=== PATIENT | female | born 1935 | race Caucasian/White ===

== ENCOUNTER 2022-12-31 00:38 | Inpatient (IN) | payer MEDICARE, OTHER ==
[2022-12-31 00:44] LABS: Glucose,Whole Blood 99 mg/dL (70-110)
--- NOTE | 2022-12-31 01:03 | ED ---
Dizziness HPI - General Chief Complaint: Syncope Stated Complaint: Syncope Time Seen by Provider: 12/31/22 00:52 Source: patient, EMS Mode of arrival: EMS Limitations: no limitations - History of Present Illness Initial Comments: 87-year-old female with past medical history significant for hypertension presents to ED with a chief complaint of dizziness. Patient states for the past day has felt dizzy. Describes this as feeling similar to near-syncope however patient states that she "doesn't let it get that far". States that this is relieved with rest. Patient reports that she feels like this when she does not have enough water. Patient also notes that she has had poor water intake over the past few days as she "forgets". Otherwise, patient has no complaints. Denies chest pain or shortness of breath. Denies urinary complaints. - Related Data Home Medications Medication Instructions Recorded Confirmed Losartan/Hydrochlorothiazide 1 each PO DAILY 03/04/15 12/18/22 [Hyzaar 100-12.5 Tablet] amLODIPine BESYLATE [Norvasc] 5 mg PO BID PRN 06/02/15 12/18/22 Previous Rx's Medication Instructions Recorded Aspirin 81 mg PO DAILY #30 chewable 03/06/15 Allergies Allergy/AdvReac Type Severity Reaction Status Date / Time esomeprazole magnesium AdvReac Nausea & Verified 12/18/22 12:27 [From Nexium] Vomiting Review of Systems ROS Statement: Those systems with pertinent positive or pertinent negative responses have been documented in the HPI. ROS Other: All systems not noted in ROS Statement are negative. Past Medical History Past Medical History: Hypertension Additional Past Medical History / Comment(s): rheumatoid arthritis History of Any Multi-Drug Resistant Organisms: None Reported Past Surgical History: Joint Replacement Additional Past Surgical History / Comment(s): bilateral knee replacements Past Anesthesia/Blood Transfusion Reactions: No Reported Reaction Past Psychological History: No Psychological Hx Reported Smoking Status: Former smoker Past Alcohol Use History: None Reported Past Drug Use History: None Reported General Exam Limitations: no limitations General appearance: alert, in no apparent distress Eye exam: Present: PERRL, EOMI ENT exam: Present: other (Mucous membranes dry) Neck exam: Present: normal inspection Respiratory exam: Present: normal lung sounds bilaterally Cardiovascular Exam: Present: regular rate, normal rhythm GI/Abdominal exam: Present: soft (No tenderness to palpation. No rebound guarding or rigidity.) Neurological exam: Present: alert, oriented X3, CN II-XII intact Skin exam: Present: warm, dry Course Vital Signs 12/31/22 00:39 Temperature 98.3 F Pulse Rate 98 Respiratory 16 Rate Blood Pressure 129/75 O2 Sat by Pulse 96 Oximetry Medical Decision Making - Medical Decision Making Was pt. sent in by a medical professional or institution (, LOR, CANNON FIRE DIRECTION SPECIALIST, urgent care, hospital, or care home...) When possible be specific @ -No Did you speak to anyone other than the patient for history (EMS, parent, family, police, friend...)? What history was obtained from this source @ -No Did you review nursing and triage notes (agree or disagree)? Why? @ -I reviewed and agree with nursing and triage notes Were old charts reviewed (outside hosp., previous admission, EMS record, old EKG, old radiological studies, urgent care reports/EKG's, care home records)? Report findings @ -No old charts were reviewed Differential Diagnosis (chest pain, altered mental status, abdominal pain women, abdominal pain men, vaginal bleeding, weakness, fever, dyspnea, syncope, headache, dizziness, GI bleed, back pain, seizure, CVA, palpatations, mental health, musculoskeletal)? @ -Differential Dizziness: Benign paroxysmal positional Vertigo, Menieres disease, otitis media, acoustic neuroma, vertebrobasilar insufficiency, cerebellar stroke, encephalitis, hypovolemic, arrhythmia, coronary artery syndrome, anemia, this is not meant to be an all-inclusive list EKG interpreted by me (3pts min.). @ -As above X-rays interpreted by me (1pt min.). @ -None done CT interpreted by me (1pt min.). @ -CT brain considered however at this time neurologic exam unremarkable lor jessicatopher is not having any other neurologic complaints. U/S interpreted by me (1pt. min.). @ -None done What testing was considered but not performed or refused? (CT, X-rays, U/S, labs)? Why? @ -None What meds were considered but not given or refused? Why? @ -None Did you discuss the management of the patient with other professionals (professionals i.e. , LOR, CANNON FIRE DIRECTION SPECIALIST, lab, RT, psych nurse, clinical social work aide, fuel system maintenance worker, teacher, collection officer, case resource manager)? Give summary @ -No Was smoking cessation discussed for >3mins.? @ -No Was critical care preformed (if so, how long)? @ -No Were there social determinants of health that impacted care today? How? (Homeles sness, low income, unemployed, alcoholism, drug addiction, transportation, low edu. Level, literacy, decrease access to med. care, correction, rehab)? @ -No Was there de-escalation of care discussed even if they declined (Discuss DNR or withdrawal of care, Hospice)? DNR status @ -No What co-morbidities impacted this encounter? (DM, HTN, Smoking, COPD, CAD, Cancer, CVA, ARF, Chemo, Hep., AIDS, mental health diagnosis, sleep apnea, morbid obesity)? @ -Hypertension Was patient admitted / discharged? Hospital course, mention meds given and route, prescriptions, significant lab abnormalities, going to OR and other pertinent info. @ -Discharge 87-year-old female presenting with 1 day of dizziness. Laboratory studies did show an elevated white count of 14.8. BUN elevated at 29. UA shows no evidence of infection. Laboratory studies otherwise unremarkable. Patient will be admitted to observation for continued IV hydration. Chest x-ray at this time ordered and pending. Discussed plan of care the patient who is in agreement. Undiagnosed new problem with uncertain prognosis? @ -No Drug Therapy requiring intensive monitoring for toxicity (Heparin, Nitro, Insulin, Cardizem)? @ -No Were any procedures done? @ -No Diagnosis/symptom? @ -Dizziness Acute, or Chronic, or Acute on Chronic? @ -Acute Uncomplicated (without systemic symptoms) or Complicated (systemic symptoms)? @ -Uncomplicated Side effects of treatment? @ -No Exacerbation, Progression, or Severe Exacerbation? @ -No Poses a threat to life or bodily function? How? (Chest pain, [place], [place], pneumonia, PE, COPD, DKA, ARF, appy, cholecystitis, CVA, Diverticulitis, Homicidal, Suic idal, threat to staff... and all critical care pts) @ -No - Lab Data Result diagrams: 12/31/22 00:54 12/31/22 00:54 Lab Results 12/31/22 12/31/22 12/31/22 Range/Units 00:42 00:54 00:54 WBC 14.8 H (3.8-10.6) k/uL RBC 4.97 (3.80-5.40) m/uL Hgb 14.5 (11.4-16.0) gm/dL Hct 44.5 (34.0-46.0) % MCV 89.6 (80.0-100.0) fL MCH 29.2 (25.0-35.0) pg MCHC 32.5 (31.0-37.0) g/dL RDW 14.9 (11.5-15.5) % Plt Count 369 (150-450) k/uL MPV 8.9 Neutrophils % (Manual) 90 % Band Neuts % (Manual) 6 % Lymphocytes % (Manual) 1 % Monocytes % (Manual) 3 % Neutrophils # (Manual) 14.20 H (1.3-7.7) k/uL Lymphocytes # (Manual) 0.15 L (1.0-4.8) k/uL Monocytes # (Manual) 0.44 (0-1.0) k/uL Nucleated RBCs 0 (0-0) /100 WBC PT 10.1 (9.0-12.0) sec INR 1.0 (<1.2) APTT 23.8 (22.0-30.0) sec Sodium (137-145) mmol/L Potassium (3.5-5.1) mmol/L Chloride (98-107) mmol/L Carbon Dioxide (22-30) mmol/L Anion Gap mmol/L BUN (7-17) mg/dL Creatinine (0.52-1.04) mg/dL Est GFR (CKD-EPI)AfAm (>60 ml/min/1.73 sqM) Est GFR (CKD-EPI)NonAf (>60 ml/min/1.73 sqM) Glucose (74-99) mg/dL POC Glucose (mg/dL) 99 (70-110) mg/dL POC Glu Towel Rolling Machine Operator ID Arnulfo Streeterle Calcium (8.4-10.2) mg/dL Total Bilirubin (0.2-1.3) mg/dL AST (14-36) U/L ALT (4-34) U/L Alkaline Phosphatase (38-126) U/L Troponin I (0.000-0.034) ng/mL Total Protein (6.3-8.2) g/dL Albumin (3.5-5.0) g/dL Urine Color Urine Appearance (Clear) Urine pH (5.0-8.0) Ur Specific [place] (1.001-1.035) Urine Protein (Negative) Urine Glucose (UA) (Negative) Urine Ketones (Negative) Urine Blood (Negative) Urine Nitrite (Negative) Urine Bilirubin (Negative) Urine Urobilinogen (<2.0) mg/dL Ur Leukocyte Esterase (Negative) 12/31/22 12/31/22 12/31/22 Range/Units 00:54 00:54 00:54 WBC (3.8-10.6) k/uL RBC (3.80-5.40) m/uL Hgb (11.4-16.0) gm/dL Hct (34.0-46.0) % MCV (80.0-100.0) fL MCH (25.0-35.0) pg MCHC (31.0-37.0) g/dL RDW (11.5-15.5) % Plt Count (150-450) k/uL MPV Neutrophils % (Manual) % Band Neuts % (Manual) % Lymphocytes % (Manual) % Monocytes % (Manual) % Neutrophils # (Manual) (1.3-7.7) k/uL Lymphocytes # (Manual) (1.0-4.8) k/uL Monocytes # (Manual) (0-1.0) k/uL Nucleated RBCs (0-0) /100 WBC PT (9.0-12.0) sec INR (<1.2) APTT (22.0-30.0) sec Sodium 135 L (137-145) mmol/L Potassium 3.8 (3.5-5.1) mmol/L Chloride 105 (98-107) mmol/L Carbon Dioxide 20 L (22-30) mmol/L Anion Gap 10 mmol/L BUN 29 H (7-17) mg/dL Creatinine 1.02 (0.52-1.04) mg/dL Est GFR (CKD-EPI)AfAm 57 (>60 ml/min/1.73 sqM) Est GFR (CKD-EPI)NonAf 50 (>60 ml/min/1.73 sqM) Glucose 108 H (74-99) mg/dL POC Glucose (mg/dL) (70-110) mg/dL POC Glu Towel Rolling Machine Operator ID Calcium 9.4 (8.4-10.2) mg/dL Total Bilirubin 1.2 (0.2-1.3) mg/dL AST 26 (14-36) U/L ALT 15 (4-34) U/L Alkaline Phosphatase 80 (38-126) U/L Troponin I <0.012 (0.000-0.034) ng/mL Total Protein 6.5 (6.3-8.2) g/dL Albumin 3.5 (3.5-5.0) g/dL Urine Color Yellow Urine Appearance Clear (Clear) Urine pH 5.5 (5.0-8.0) Ur Specific [place] 1.017 (1.001-1.035) Urine Protein Trace H (Negative) Urine Glucose (UA) Negative (Negative) Urine Ketones Negative (Negative) Urine Blood Negative (Negative) Urine Nitrite Negative (Negative) Urine Bilirubin Negative (Negative) Urine Urobilinogen <2.0 (<2.0) mg/dL Ur Leukocyte Esterase Negative (Negative) - EKG Data EKG Comments: EKG shows a sinus tachycardia at [address] or T-wave changes. GA 178, QRS 92, QT/QTc 332/389 Disposition Clinical Impression: Dizziness Disposition: ADMITTED IP TO THIS HOSP Condition: Good Referrals: Jose Antonio Pablo MD [Primary Care Provider] - 1-2 days Time of Disposition: 02:15
[2022-12-31 01:16] LABS: Appearance,Urine Clear (Clear); Bilirubin,Urine Negative (Negative); Blood,Urine Negative (Negative); Color,Urine Yellow; Glucose,Urine (UA) Negative (Negative); Ketones,Urine Negative (Negative); Leukocyte Esterase,Urine Negative (Negative); Nitrite,Urine Negative (Negative); PH, Urine 5.5 (5.0-8.0); Protein,Urine Trace (Negative); Specific Gravity,Urine 1.017 (1.001-1.035); Urobilinogen,Urine <2.0 mg/dL (<2.0)
[2022-12-31 01:20] LABS: ALT 15 U/L (4-34); AST 26 U/L (14-36); African American GFR (CKD) 57 (>60 ml/min/1.73 sqM); Albumin 3.5 g/dL (3.5-5.0); Alkaline Phosphatase 80 U/L (38-126); Anion Gap 10 mmol/L; Blood Urea Nitrogen 29 mg/dL (7-17); Calcium 9.4 mg/dL (8.4-10.2); Carbon Dioxide 20 mmol/L (22-30); Chloride 105 mmol/L (98-107); Glucose 108 mg/dL (74-99); Non-African American GFR(CKD) 50 (>60 ml/min/1.73 sqM); Potassium 3.8 mmol/L (3.5-5.1); Sodium 135 mmol/L (137-145); Total Bilirubin 1.2 mg/dL (0.2-1.3); Total Protein 6.5 g/dL (6.3-8.2)
[2022-12-31 01:24] LABS: Partial Thromboplastin Time 23.8 sec (22.0-30.0); Prothrombin Time 10.1 sec (9.0-12.0)
[2022-12-31 01:30] LABS: HCT 44.5 % (34.0-46.0); HGB 14.5 gm/dL (11.4-16.0); MCH 29.2 pg (25.0-35.0); MCHC 32.5 g/dL (31.0-37.0); MCV 89.6 fL (80.0-100.0); Mean Platelet Volume 8.9; Platelet Count 369 k/uL (150-450); RBC 4.97 m/uL (3.80-5.40); RDW 14.9 % (11.5-15.5); WBC 14.8 k/uL (3.8-10.6)
[2022-12-31 02:14] LABS: Band Neutrophils % 6 %; Lymphocytes # (M) 0.15 k/uL (1.0-4.8); Monocytes # (M) 0.44 k/uL (0-1.0); Neutrophils % (M) 90 %; Nucleated Red Blood Cells 0 /100 WBC (0-0); Total Cells Counted 100
[2022-12-31] MEDS ORDERED: NALOXONE 0.4 MG/ML 1 ML VIAL IV PRN (03:24)
[2022-12-31] MEDS ORDERED: ACETAMINOPHEN TAB 325 MG TAB PO PRN (03:24)
[2022-12-31] MEDS: SODIUM CHLORIDE 0.9% 1,000 ML IV SCH ×4 (03:48→20:30)
--- NOTE | 2022-12-31 04:14 | XR ---
EXAM: XR Chest, 1 View CLINICAL HISTORY: ITS.REASON XR Reason: dizzy TECHNIQUE: Frontal view of the chest. COMPARISON: 03/04/2015 FINDINGS: Lungs: No consolidation. No overt edema. Pleural space: No pleural effusion. No pneumothorax. Heart: Unremarkable. No cardiomegaly. IMPRESSION: No acute cardiopulmonary abnormality.
[2022-12-31] MEDS ORDERED: LOSARTAN 50 MG TAB PO SCH (09:00)
--- NOTE | 2022-12-31 09:35 | US ---
EXAMINATION TYPE: US carotid duplex BILAT DATE OF EXAM: 12/31/2022 COMPARISON: 03/04/2015 CLINICAL INDICATION: Female, 87 years old with history of Dizziness; Dizzy. HTN- on meds per patient Portable Inpt exam TECHNIQUE: Carotid duplex ultrasound examination. Indirect Doppler criteria was utilized. FINDINGS: EXAM MEASUREMENTS: RIGHT: Peak Systolic Velocity (PSV) cm/sec ----- Right CCA: 111.0 ----- Right ICA: 104.0 ----- Right ECA: 162.0 ICA/CCA ratio: 0.9 RIGHT: End Diastole cm/sec ----- Right CCA: 9.0 ----- Right ICA: 4.9 ----- Right ECA: 0.0 LEFT: Peak Systolic Velocity (PSV) cm/sec ----- Left CCA: 94.5 ----- Left ICA: 169.0 ----- Left ECA: 115.0 ICA/CCA ratio: 1.8 LEFT: End Diastole cm/sec ----- Left CCA: 2.2 ----- Left ICA: 20.8 ----- Left ECA: 0.0 VERTEBRALS (direction of flow): Right Vertebral: Antegrade Left Vertebral: Antegrade Rhythm: Normal REFRIGERATION MECHANIC HELPER NOTES: Plaque visualized. No significant stenosis. Elevated right ECA, left mid ICA and left distal ICA velocities. IMPRESSION: 50-69% stenosis of the left carotid bifurcation. Less than 50% stenosis of the right carotid bifurcation. Criteria for Assigning % of Stenosis / Diameter reduction (Estimation based on the indirect measurements of the internal carotid artery velocities (ICA PSV). 1. Normal (no stenosis)=ICA PSV < 125 cm/s: ratio < 2.0: ICA EDV<40 cm/s. 2. Less than 50% stenosis=ICA PSV < 125 cm/s: ratio < 2.0: ICA EDV<40 cm/s. 3. 50 to 69% stenosis=ICA PSV of 125 to 230 cm/s: ration 2.0 ? 4.0: ICA EDV 40-100 cm/s. 4. Greater than 70% stenosis to near occlusion= ICA PSV > 230 cm/s: ratio > 4.0: ICA EDV > 100 cm/s. 5. Near occlusion= ICA PSV velocities may be low or undetectable: variable ratio and ICA EDV. 6. Total occlusion=unable to detect flow.
--- NOTE | 2022-12-31 09:55 | P.CRDCN ---
History of Present Illness History of present illness: HISTORY OF PRESENT ILLNESS: This is a 87-year-old female with a past medical history significant for hypertension. Patient does not follow with a director internal control. We have been asked to see the patient in consultation for dizziness. Patient examined at the bedside. Patient presented to the hospital with a chief complaint of feeling dizzy over the past couple days. She states that she felt she was going to pass out but never had any actual syncopal events. She denies any history of syncope. She states that she has not been drinking much fluid for the past few days and feels dehydrated. She denies any chest pain or pressure. She denies any shortness of breath. Orthostatic blood pressures were positive with a supine blood pressure of 147/72 and a standing blood pressure of 91/50. * EKG reveals sinus tachycardia with no signs of acute ischemia * Chest xray negative for acute process * Laboratory data: WBC 14.8. Hemoglobin 14.5. Platelet count 369. Sodium 135. Potassium 3.8. BUN 29. Creatinine 1.02. * Current home cardiac medications include amlodipine 5 mg twice a day, losartan 100 mg daily, aspirin 81 mg daily REVIEW OF SYSTEMS: At the time of my exam: CONSTITUTIONAL: Denies fever or chills. HEENT: Denies blurred vision, vision changes, or eye pain. Denies hemoptysis CARDIOVASCULAR: Denies chest pain. Denies orthopnea. Denies PND. Denies palpitations RESPIRATORY: Denies shortness of breath. GASTROINTESTINAL: Denies abdominal pain. Denies nausea or vomiting. HEMATOLOGIC: Denies bleeding disorders. GENITOURINARY: Denies any blood in urine. SKIN: Denies pruitis. Denies rash. PHYSICAL EXAM: VITAL SIGNS: Reviewed. GENERAL: Well-developed in no acute distress. HEENT: Head is normocephalic. Pupils are equal, round. Sclerae anicteric. Mucous membranes of the mouth are moist. Neck supple. No JVD or thyromegaly LUNGS: Respirations even and unlabored. Lungs essentially clear to auscultation bilaterally. HEART: Regular rate and rhythm. S1 and S2 heard. ABDOMEN: Soft. Nondistended. Nontender. EXTREMITIES: Normal range of motion. No clubbing or cyanosis. Peripheral pulses intact. No lower extremity edema NEUROLOGIC: Awake and alert. Oriented x 3. ASSESSMENT: Dizziness Orthostatic hypotension History of hypertension Decreased oral intake, per patient PLAN: Discontinue amlodipine Decrease losartan to 50 mg daily Begin normal saline at 100 mL an hour for 12 hours Continue to monitor blood pressure Obtain 2-D echo to assess cardiac structure and function Patient to receive 14 days event monitor at the time of discharge Further recommendations pending patient's course Nurse practitioner note has been reviewed by physician. Signing provider agrees with the documented findings, assessment, and plan of care. Past Medical History Past Medical History: Hypertension Additional Past Medical History / Comment(s): rheumatoid arthritis History of Any Multi-Drug Resistant Organisms: None Reported Past Surgical History: Joint Replacement Additional Past Surgical History / Comment(s): bilateral knee replacements Past Anesthesia/Blood Transfusion Reactions: No Reported Reaction Past Psychological History: No Psychological Hx Reported Smoking Status: Former smoker Past Alcohol Use History: None Reported Past Drug Use History: None Reported Medications and Allergies Home Medications Medication Instructions Recorded Confirmed Type Aspirin 81 mg PO DAILY #30 chewable 03/06/15 12/31/22 Rx Donepezil [Aricept] 5 mg PO DAILY 12/31/22 12/31/22 History Losartan Potassium 100 mg PO DAILY 12/31/22 12/31/22 History amLODIPine [Norvasc] 5 mg PO BID 12/31/22 12/31/22 History Allergies Allergy/AdvReac Type Severity Reaction Status Date / Time esomeprazole magnesium AdvReac Nausea & Verified 12/31/22 08:55 [From Nexium] Vomiting Physical Exam Vitals: Vital Signs Temp Pulse Resp BP Pulse Ox 12/31/22 07:21 83 20 152/67 96 12/31/22 02:47 82 16 144/61 95 12/31/22 00:39 98.3 F 98 16 129/75 96 Intake and Output 12/30/22 12/31/22 12/31/22 22:59 06:59 14:59 Other: Weight 72.575 kg Results 12/31/22 00:54 12/31/22 00:54 Cardiac Enzymes 12/31/22 12/31/22 Range/Units 00:54 00:54 AST 26 (14-36) U/L Troponin I <0.012 (0.000-0.034) ng/mL Coagulation 12/31/22 Range/Units 00:54 PT 10.1 (9.0-12.0) sec APTT 23.8 (22.0-30.0) sec CBC 12/31/22 Range/Units 00:54 WBC 14.8 H (3.8-10.6) k/uL RBC 4.97 (3.80-5.40) m/uL Hgb 14.5 (11.4-16.0) gm/dL Hct 44.5 (34.0-46.0) % Plt Count 369 (150-450) k/uL Comprehensive Metabolic Panel 12/31/22 Range/Units 00:54 Sodium 135 L (137-145) mmol/L Potassium 3.8 (3.5-5.1) mmol/L Chloride 105 (98-107) mmol/L Carbon Dioxide 20 L (22-30) mmol/L BUN 29 H (7-17) mg/dL Creatinine 1.02 (0.52-1.04) mg/dL Glucose 108 H (74-99) mg/dL Calcium 9.4 (8.4-10.2) mg/dL AST 26 (14-36) U/L ALT 15 (4-34) U/L Alkaline Phosphatase 80 (38-126) U/L Total Protein 6.5 (6.3-8.2) g/dL Albumin 3.5 (3.5-5.0) g/dL Current Medications Generic Name Dose Route Start Last Admin Trade Name Freq PRN Reason Stop Dose Admin Acetaminophen 650 mg 12/31/22 03:24 Acetaminophen Tab 325 Mg Tab PO Q6HR PRN Mild Pain or Fever > 100.5 Sodium Chloride 1,000 mls @ 75 mls/hr 12/31/22 03:30 12/31/22 03:48 Saline 0.9% IV 75 mls/hr .[id number] VINEET Administration Naloxone HCl 0.2 mg 12/31/22 03:24 Naloxone 0.4 Mg/Ml 1 Ml Vial IV Q2M PRN Opioid Reversal Intake and Output 12/30/22 12/31/22 12/31/22 22:59 06:59 14:59 Other: Weight 72.575 kg 12/31/22 00:54 12/31/22 00:54
[2022-12-31] MEDS: ASPIRIN 81 MG PO SCH (10:00)
[2022-12-31] MEDS: LOSARTAN 50 MG TAB PO SCH ×2 (10:00→10:26)
--- NOTE | 2022-12-31 13:08 | P.HPIM ---
History of Present Illness This is a pleasant 87 years old female with past medical history of hypertension Patient lives by herself in her apartment, she walks short distances using a walker Yesterday she had a dizzy spell that lasted for a few minutes without passing out so she decided to come to the hospital. Other than that she denies any other symptoms except for mild generalized weakness. She denies headache, weakness numbness, no chest pain shortness of breath or coughing. No diarrhea, no abdominal pain or vomiting. She has somewhat limited appetite today. She denies dysuria or urgency about she thinks her urine smells more than usual. No rash. She denies smoking alcohol or illicit drugs. Orthostatic vitals are positive Vitals are stable on admission. However O and today she developed low-grade fever around 100 showing mild leukocytosis of 14.8. Rest of CBC, INR and BMP is unremarkable. Liver enzymes not elevated. Urine analysis looks clear Chest x-ray: No acute cardiopulmonary process EKG shows sinus tachycardia 100 Review of Systems Review of systems CONSTITUTIONAL: No fever, no malaise, no fatigue. HEENT: No recent visual problems or hearing problems. Denied any sore throat. CARDIOVASCULAR: No orthopnea, PND, no palpitations, no syncope. PULMONARY: No shortness of breath, no cough, no hemoptysis. GASTROINTESTINAL: No diarrhea, no nausea, no vomiting, no abdominal pain. Norm oactive bowel sounds. NEUROLOGICAL: No headaches, no weakness, no numbness. HEMATOLOGICAL: Denies any bleeding or petechiae. GENITOURINARY: Denies any burning micturition, frequency, or urgency. MUSCULOSKELETAL/RHEUMATOLOGICAL: Denies any joint pain, swelling, or any muscle pain. ENDOCRINE: Denies any polyuria or polydipsia. Past Medical History Past Medical History: Hypertension Additional Past Medical History / Comment(s): rheumatoid arthritis History of Any Multi-Drug Resistant Organisms: None Reported Past Surgical History: Joint Replacement Additional Past Surgical History / Comment(s): bilateral knee replacements Past Anesthesia/Blood Transfusion Reactions: No Reported Reaction Past Psychological History: No Psychological Hx Reported Smoking Status: Former smoker Past Alcohol Use History: None Reported Past Drug Use History: None Reported Medications and Allergies Home Medications Medication Instructions Recorded Confirmed Type Aspirin 81 mg PO DAILY #30 chewable 03/06/15 12/31/22 Rx Donepezil [Aricept] 5 mg PO DAILY 12/31/22 12/31/22 History Losartan Potassium 100 mg PO DAILY 12/31/22 12/31/22 History amLODIPine [Norvasc] 5 mg PO BID 12/31/22 12/31/22 History Allergies Allergy/AdvReac Type Severity Reaction Status Date / Time esomeprazole magnesium AdvReac Nausea & Verified 12/31/22 08:55 [From Nexium] Vomiting Physical Exam Vitals: Vital Signs Temp Pulse Resp BP Pulse Ox 12/31/22 07:21 83 20 152/67 96 12/31/22 02:47 82 16 144/61 95 12/31/22 00:39 98.3 F 98 16 129/75 96 Intake and Output 12/30/22 12/31/22 12/31/22 22:59 06:59 14:59 Other: Weight 72.575 kg GENERAL: The patient is alert and oriented x3, not in any acute distress. Well developed, well nourished. HEENT: Pupils are round and equally reacting to light. EOMI. No scleral icterus. No conjunctival pallor. Normocephalic, atraumatic. No pharyngeal erythema. No thyromegaly. CARDIOVASCULAR: S1 and S2 present. No murmurs, rubs, or gallops. PULMONARY: Chest is clear to auscultation, no wheezing , no crackles. ABDOMEN: Soft, nontender, nondistended, normoactive bowel sounds. No palpable organomegaly. MUSCULOSKELETAL: No joint swelling or deformity. EXTREMITIES: No cyanosis, clubbing, or pedal edema. NEUROLOGICAL: Gross neurological examination did not reveal any focal deficits. SKIN: No rashes. no petechiae. Results CBC & Chem 7: 12/31/22 00:54 12/31/22 00:54 Labs: Abnormal Lab Results - Last 24 Hours (Table) 12/31/22 12/31/22 12/31/22 Range/Units 00:54 00:54 00:54 WBC 14.8 H (3.8-10.6) k/uL Neutrophils # (Manual) 14.20 H (1.3-7.7) k/uL Lymphocytes # (Manual) 0.15 L (1.0-4.8) k/uL Sodium 135 L (137-145) mmol/L Carbon Dioxide 20 L (22-30) mmol/L BUN 29 H (7-17) mg/dL Glucose 108 H (74-99) mg/dL Urine Protein Trace H (Negative) Assessment and Plan Assessment: dizziness and PRE-Syncope secondary to orthostatic hypotension Possible sepsis with fever and mild leukocytosis poor Oral intake Hypertension Plan: Telemetry monitoring Cardiology consult. Aspirin and by retirement specialist Check echocardiogram Continue with intravenous hydration Check blood culture, inflammatory markers. Infectious disease consult Labs and medication were reviewed.. Continue same treatment. Continue with symptomatic treatment. Resume home medication. Monitor labs and vitals. DVT and GI prophylaxis. Further recommendations as per clinical course of the patient DVT prophylaxis: Subcutaneous heparin GI Prophylaxis: Pepcid PT/OT: Pending Prognosis is guarded
[2022-12-31 14:16] LABS: HGB 14.1 gm/dL (11.4-16.0); MCH 29.1 pg (25.0-35.0); MCHC 32.1 g/dL (31.0-37.0); MCV 90.7 fL (80.0-100.0); Mean Platelet Volume 8.8; Platelet Count 355 k/uL (150-450); RBC 4.85 m/uL (3.80-5.40); RDW 14.9 % (11.5-15.5); WBC 15.6 k/uL (3.8-10.6)
[2022-12-31] MEDS ORDERED: IOPAMIDOL CONTRAST (ORAL USE) VIAL PO PRN (21:40)
--- NOTE | 2022-12-31 21:40 | P.CONS ---
History of Present Illness - Reason for Consult Consult date: 12/31/22 Sepsis Requesting physician: Dewey Mensah - Chief Complaint Dizziness and weakness x 1 day - History of Present Illness Patient is a 87-year-old female with a past medical history significant for hypertension osteoarthritis former smoker presenting to the [facility] after midnight complaining of dizziness patient mention for today she felt dizzy describing it to be near syncopal episode however the patient did not have a fall or loss of consciousness patient denies any headache or URI symptoms did have decreased oral intake but no nausea vomiting no chest pain shortness of breath or cough no abdominal pain no diarrhea no urinary symptoms with the symptoms the patient has been evaluated on presentation to the hospital the patient was afebrile however she did have a low-grade fever 100 F this morning the patient was not tachycardic hypotensive or hypoxic patient did have a white count of 15.6 with a left shift creatinine was 1.02 CRP is 1.3 urine was negative influenza RSV and COVID testing was negative patient did have a chest x-ray no acute cardiopulmonary abnormality patient was admitted to hospital infectious was consulted concerning for sepsis Review of Systems Positive point and negatives has been mentioned in the HPI, complete review of systems was performed and all other systems are negative Past Medical History Past Medical History: Hypertension Additional Past Medical History / Comment(s): rheumatoid arthritis History of Any Multi-Drug Resistant Organisms: None Reported Past Surgical History: Joint Replacement Additional Past Surgical History / Comment(s): bilateral knee replacements Past Anesthesia/Blood Transfusion Reactions: No Reported Reaction Past Psychological History: No Psychological Hx Reported Smoking Status: Former smoker Past Alcohol Use History: None Reported Past Drug Use History: None Reported Medications and Allergies Home Medications Medication Instructions Recorded Confirmed Type Aspirin 81 mg PO DAILY #30 chewable 03/06/15 12/31/22 Rx Donepezil [Aricept] 5 mg PO DAILY 12/31/22 12/31/22 History Ciprofloxacin HCl [Cipro] 500 mg PO BID 7 Days #14 tab 01/07/23 Rx Famotidine [Pepcid] 20 mg PO DAILY #30 tab 01/07/23 Rx amLODIPine [Norvasc] 5 mg PO DAILY #0 01/07/23 12/31/22 Rx Allergies Allergy/AdvReac Type Severity Reaction Status Date / Time esomeprazole magnesium AdvReac Nausea & Verified 12/31/22 08:55 [From Nexium] Vomiting Physical Exam Vitals: Vital Signs Temp Pulse Pulse Pulse Pulse Resp BP 12/31/22 07:21 83 20 152/67 12/31/22 07:00 100.0 F H 81 97 79 17 12/31/22 02:47 82 16 144/61 12/31/22 00:39 98.3 F 98 16 129/75 BP BP BP Pulse Ox 12/31/22 07:21 96 12/31/22 07:00 128/75 91/50 147/72 93 L 12/31/22 02:47 95 12/31/22 00:39 96 Intake and Output 12/30/22 12/31/22 12/31/22 22:59 06:59 14:59 Intake Total 591 Balance 591 Intake: Oral 591 Other: Weight 72.575 kg GENERAL DESCRIPTION: Elderly female lying in bed, no distress. No tachypnea or accessory muscle of respiration use. HEENT: Shows Pallor , no scleral icterus. Oral mucous membrane is dry. No pharyngeal erythema or thrush NECK: Trachea central, no thyromegaly. LUNGS: Unlabored breathing. Clear to auscultation anteriorly. No wheeze or cr ackle. HEART: S1, S2, regular rate and rhythm. No loud murmur ABDOMEN: Soft, no tenderness , guarding or rigidity, no organomegaly EXTREMITIES: No edema of feet. SKIN: No rash, no masses palpable. NEUROLOGICAL: The patient is awake, alert, oriented x3, mood and affect normal. Results CBC & Chem 7: 01/07/23 05:42 01/07/23 05:42 Labs: Abnormal Lab Results - Last 24 Hours (Table) 12/31/22 12/31/22 12/31/22 Range/Units 00:54 00:54 00:54 WBC 14.8 H (3.8-10.6) k/uL Neutrophils # (Manual) 14.20 H (1.3-7.7) k/uL Lymphocytes # (Manual) 0.15 L (1.0-4.8) k/uL Sodium 135 L (137-145) mmol/L Carbon Dioxide 20 L (22-30) mmol/L BUN 29 H (7-17) mg/dL Glucose 108 H (74-99) mg/dL Urine Protein Trace H (Negative) Assessment and Plan (1) Sepsis Status: Acute Code(s): A41.9 - SEPSIS, UNSPECIFIED ORGANISM SNOMED Code(s): 15787432 (2) UTI (urinary tract infection) Status: Acute Code(s): N39.0 - URINARY TRACT INFECTION, SITE NOT SPECIFIED SNOMED Code(s): 10121829 Plan: 1patient presented to the hospital with weakness dizziness and this patient to have a low-grade fever 100 F, the patient-also did have elevated white count however no clear focus of infection with initial work-up negative including a negative UA chest x-ray was negative no evidence of any joint swelling or cellulitis. 2blood cultures have been obtained and results will be followed recheck inflammatory markers. 3we will check a CT abdominal pelvis to rule out abdominal pathology. 4we will empirically cover the patient with the Unasyn while waiting for the work-up to be completed. We will follow on clinical condition and cultures to further adjust medication if needed Thank you for this consultation we will follow the patient along with you Dictation was produced using [employer] dictation software. please excuse any grammatical, word or spelling errors. Time with Patient: Greater than 30
[2023-01-01 04:02] LABS: Appearance,Urine Clear (Clear); Bacteria,Urine Rare /hpf; Bilirubin,Urine Negative (Negative); Blood,Urine Negative (Negative); Color,Urine Yellow; Glucose,Urine (UA) Negative (Negative); Hyaline Casts,Urine 1 /lpf (0-2); Ketones,Urine 1+ (Negative); Leukocyte Esterase,Urine Moderate (Negative); Mucus,Urine Rare /hpf; Nitrite,Urine Negative (Negative); PH, Urine 5.5 (5.0-8.0); Protein,Urine 1+ (Negative); RBC,Urine 1 /hpf (0-5); Specific Gravity,Urine 1.023 (1.001-1.035); Squamous Epithelial Cell,Urine 2 /hpf (0-4); Urobilinogen,Urine <2.0 mg/dL (<2.0); WBC,Urine 16 /hpf (0-5)
[2023-01-01] MEDS: SODIUM CHLORIDE 0.9% 1,000 ML IV SCH ×3 (04:53→21:34)
--- NOTE | 2023-01-01 07:28 | CA ---
Transthoracic Echo Report Name: Susanne Lipscomb Age: 87 Gender: F : 1935 Exam Date: 12/31/2022 11:17 Exam Location: [facility] Ht (in): 63 Wt (lb): 160 Ordering Physician: Dewey Mensah MD Attending/Referring Phys: [id number], Makenna Pediatric Dermatologist Yeny Quinones [facility] Procedure CPT: Indications: Rule out heart disease Cardiac Hx: Technical Quality: Fair Contrast 1: Total Dose (mL): Contrast 2: Total Dose (mL): MEASUREMENTS (Male / Female) Normal Values 2D ECHO LV Diastolic Diameter PLAX 4.5 cm 4.2 - 5.9 / 3.9 - 5.3 cm LV Systolic Diameter PLAX 3.4 cm IVS Diastolic Thickness 1.0 cm 0.6 - 1.0 / 0.6 - 0.9 cm LVPW Diastolic Thickness 1.0 cm 0.6 - 1.0 / 0.6 - 0.9 cm LV Relative Wall Thickness 0.4 LVOT Diameter 2.0 cm Ascending Aorta Diameter 3.4 cm M-MODE Aortic Root Diameter MM 2.9 cm LA Systolic Diameter MM 4.7 cm LA Ao Ratio MM 1.6 AV Cusp Separation MM 2.1 cm DOPPLER AV Peak Velocity 139.8 cm/s AV Peak Gradient 7.8 mmHg AV Mean Velocity 94.7 cm/s AV Mean Gradient 4.2 mmHg AV Velocity Time Integral 25.3 cm LVOT Peak Velocity 107.3 cm/s LVOT Peak Gradient 4.6 mmHg LVOT Velocity Time Integral 23.5 cm LVOT Stroke Volume 70.3 cm??? LVOT Stroke Volume Index 40.0 ml/m??? LVOT Cardiac Index 2902.1 cm???/min???m??? AV Area Cont Eq vti 2.8 cm??? AV Area Cont Eq pk 2.3 cm??? Mitral E Point Velocity 49.0 cm/s Mitral A Point Velocity 84.0 cm/s Mitral E to A Ratio 0.6 MV Deceleration Time 286.4 ms LV E' Lateral Velocity 6.0 cm/s Mitral E to LV E' Lateral Ratio 8.2 LV E' Septal Velocity 7.3 cm/s Mitral E to LV E' Septal Ratio 6.7 TR Peak Velocity 268.2 cm/s TR Peak Gradient 28.8 mmHg Right Atrial Pressure 3.0 mmHg Pulmonary Artery Systolic Pressu 31.8 mmHg Right Ventricular Systolic Press 31.8 mmHg FINDINGS Left Ventricle Mildly increased left ventricular wall thickness. Left ventricular cavity size normal. Normal left ventricular systolic function with no obvious regional wall motion abnormalities. Left ventricular ejection fraction is estimated at 55- 60%. Right Ventricle Mild right ventricular dilatation. Mild pulmonary hypertension. Right Atrium Mild right atrial dilatation. Left Atrium Normal left atrial size. Mitral Valve Structurally normal mitral valve. Mitral valve thickened. Mild mitral regurgitation. Aortic Valve Trileaflet aortic valve. Aortic valve sclerosis. No aortic regurgitation. Tricuspid Valve Structurally normal tricuspid valve. Mild tricuspid regurgitation. Pulmonic Valve Pulmonic valve not well visualized. Pericardium No pericardial effusion. Echo free space anterior to the right ventricle likely represents a fat pad. Aorta Normal size aortic root and proximal ascending aorta. CONCLUSIONS Normal LV size and systolic function. Mild mitral and tricuspid regurgitation. No pericardial effusion. Possible fat pad. No pulmonary hypertension Previewed by: Dr. Marilu Woods MD (Electronically Signed) Final Date: 01 January 2023 07:27
[2023-01-01] MEDS: ASPIRIN 81 MG PO SCH (07:29)
[2023-01-01] MEDS: LOSARTAN 50 MG TAB PO SCH (07:29)
[2023-01-01] MEDS: HEPARIN SODIUM,PORCINE 5,000 UNIT/ML 1 ML VIAL SQ SCH ×2 (07:36→21:33)
[2023-01-01] MEDS ORDERED: FAMOTIDINE 20 MG/2 ML VIAL IV SCH (09:00)
[2023-01-01 09:35] LABS: ALT 20 U/L (8-44); AST 34 U/L (13-35); Albumin 3.3 d/dL (3.8-4.9); Albumin/Globulin Ratio 1.57 Ratio (1.60-3.17); Alkaline Phosphatase 65 U/L (41-126); Blood Urea Nitrogen 19.3 mg/dL (9.0-27.0); Calcium 9.4 mg/dL (8.7-10.3); Carbon Dioxide 22.3 mmol/L (21.6-31.8); Chloride 105 mmol/L (96-109); Globulin 2.1 d/dL (1.6-3.3); Glucose 94 mg/dL (70-110); Potassium 4.2 mmol/L (3.5-5.5); Sodium 136 mmol/L (135-145); Total Bilirubin 1.2 mg/dL (0.3-1.2); Total Protein 5.4 d/dL (6.2-8.2)
--- NOTE | 2023-01-01 10:01 | PN ---
PROGRESS NOTE SUBJECTIVE: Ms. Lipscomb is in sinus rhythm, comfortable. I reviewed the rhythm strips. There is no evidence of any tachy or payal arrhythmias. She has a UTI, elevated white count, some dehydration and has improved overall feeling. She has no chest pain or shortness of breath or dizziness at the time of my evaluation. She still has some orthostatic changes and I will start her on midodrine in addition to hydration. Echo revealed good systolic function. UTI is being addressed by Infectious Disease specialist. OBJECTIVE: VITAL SIGNS: Stable. I will ask them to repeat blood pressure supine and standing. HEART: S1, S2 heard normally. Short systolic murmur noted. LUNGS: Revealed decent air entry. ABDOMEN: Unchanged. LOWER EXTREMITIES: Unchanged. Cardiac-reddy, I do not believe we need an event monitor, but we will continue to monitor her on telemetry here. We will await the results of her blood pressure recording supine and standing, but continue cautious hydration for now. Antibiotics as per Infectious Disease specialist. MMODL / IJN: [id number] /
[2023-01-01 10:36] LABS: Basophils # (A) 0.07 X 10*3/uL (0.00-0.10); Eosinophils # (A) 0.08 X 10*3/uL (0.04-0.35); Eosinophils % (A) 1.1 %; HCT 42.6 % (37.2-46.3); Lymphocytes # (A) 0.79 X 10*3/uL (0.90-5.00); MCH 28.9 pg (27.0-32.0); MCHC 32.9 d/dL (32.0-37.0); Monocytes # (A) 0.37 X 10*3/uL (0.20-1.00); Monocytes % (A) 5.1 %; NRBC Per 100 WBC 0 X 10*3/uL (0.00-0.01); Neutrophils # (A) 5.85 X 10*3/uL (1.80-7.70); Neutrophils % (A) 81.4 %; Platelet Count 317 X 10*3/uL (140-440); RBC 4.84 X 10*6/uL (4.10-5.20); RDW 15.8 % (11.5-14.5); WBC 7.19 X 10*3/uL (4.50-10.00)
--- NOTE | 2023-01-01 13:37 | CT ---
EXAMINATION TYPE: CT abdomen pelvis w con DATE OF EXAM: 01/01/2023 COMPARISON: None INDICATION: fever, confusion DLP: 1313.7 mGycm, Automated exposure control for dose reduction was used. CONTRAST: 80cc mL of Isovue 300. Study performed with Oral Contrast TECHNIQUE: Axial images were obtained from above the diaphragm to the pubic rami in the axial plane a t 5 mm thick sections. Reconstructed images are reviewed on the computer in the coronal plane. FINDINGS: Limited CT sections are obtained the lung bases. The lung bases are clear. CT ABDOMEN: Liver: Normal Spleen: Normal Pancreas: Normal Adrenal glands: The adrenal glands are normal. Gallbladder: Normal Kidneys: No masses are evident. No hydronephrosis is present. There is a 2.2 cm cortical renal cyst posterior lateral left mid kidney. Delayed images were obtained through the kidneys, which remain u nremarkable. Aorta: Vascular calcification is within the aorta. Inferior vena cava: Normal. CT PELVIS: Loops of bowel within the abdomen and pelvis are normal. There are loops of bowel which are incom pletely distended or lack oral contrast limiting their evaluation. Appendix: Not visualized. No dilated tubular structure or inflammatory changes evident. Urinary bladder: Decompressed with limited evaluation Genitourinary structures: Uterus appears normal. Calcification is present. Adnexa are normal. Osseous structures: No suspicious lytic or sclerotic lesions. IMPRESSION: 1. No suspicious changes for infection.
[2023-01-01] MEDS: MIDODRINE 5 MG TAB PO SCH ×2 (14:30→18:11)
--- NOTE | 2023-01-01 20:08 | P.PN ---
Subjective Progress Note Date: 01/01/23 Principal diagnosis: Fever ?UTI Patient is a 87-year-old female with a past medical history significant for hypertension osteoarthritis former smoker presenting [facility] midnight complaining of dizziness, patient did have a low-grade fever and elevated white count with a chest x-ray negative urine negative. On today's evaluation that is 12/31/2022, the patient denies having any fever or any chills, patient is breathing comfortably on room air no chest pain shortness of breath or cough no nausea vomiting no abdominal pain and no diarrhea Patient white count normalized to 7.19, creatinine is 1.0 CRP is up however procalcitonin came down to 14.3 0 repeat UA is positive CT abdominal pelvis is currently pending Objective - Vital Signs Vital signs: Vital Signs Temp 98.0 F 01/01/23 07:00 Pulse 73 01/01/23 08:48 Resp 17 01/01/23 07:00 BP 138/63 01/01/23 08:48 Pulse Ox 96 01/01/23 07:00 FiO2 Intake & Output 12/31/22 01/01/23 01/01/23 18:59 06:59 18:59 Intake Total 591 Balance 591 Weight 72.575 kg Intake: Oral 591 Other: # Voids 1 1 # Bowel Movements 1 - Exam GENERAL DESCRIPTION: Elderly female lying in bed in no distress RESPIRATORY SYSTEM: Unlabored breathing , decreased breath sounds at bases HEART: S1 S2 regular rate and rhythm ,no loud murmurs ABDOMEN: Soft , no tenderness EXTREMITIES: No edema feet - Labs CBC & Chem 7: 01/01/23 06:03 01/01/23 06:03 Labs: Abnormal Lab Results - Last 24 Hours (Table) 12/31/22 12/31/22 12/31/22 Range/Units 00:54 00:54 13:16 WBC 15.6 H (3.8-10.6) k/uL RDW (11.5-14.5) % Lymphocytes # (0.90-5.00) X 10*3/uL Est GFR (CKD-EPI) (>=60) C-Reactive Protein 1.3 H (<1.0) mg/dL Total Protein (6.2-8.2) d/dL Albumin (3.8-4.9) d/dL Albumin/Globulin Ratio (1.60-3.17) Ratio Procalcitonin 23.00 H (0.02-0.09) ng/mL Urine Protein (Negative) Urine Ketones (Negative) Ur Leukocyte Esterase (Negative) Urine WBC (0-5) /hpf Urine Bacteria (None) /hpf Urine Mucus (None) /hpf 01/01/23 01/01/23 01/01/23 Range/Units 03:18 06:03 06:03 WBC (3.8-10.6) k/uL RDW 15.8 H (11.5-14.5) % Lymphocytes # 0.79 L (0.90-5.00) X 10*3/uL Est GFR (CKD-EPI) (>=60) C-Reactive Protein (<1.0) mg/dL Total Protein (6.2-8.2) d/dL Albumin (3.8-4.9) d/dL Albumin/Globulin Ratio (1.60-3.17) Ratio Procalcitonin 14.30 H (0.02-0.09) ng/mL Urine Protein 1+ H (Negative) Urine Ketones 1+ H (Negative) Ur Leukocyte Esterase Moderate H (Negative) Urine WBC 16 H (0-5) /hpf Urine Bacteria Rare H (None) /hpf Urine Mucus Rare H (None) /hpf 01/01/23 Range/Units 06:03 WBC (3.8-10.6) k/uL RDW (11.5-14.5) % Lymphocytes # (0.90-5.00) X 10*3/uL Est GFR (CKD-EPI) 54 L (>=60) C-Reactive Protein 10.70 H (<1.0) mg/dL Total Protein 5.4 L (6.2-8.2) d/dL Albumin 3.3 L (3.8-4.9) d/dL Albumin/Globulin Ratio 1.57 L (1.60-3.17) Ratio Procalcitonin (0.02-0.09) ng/mL Urine Protein (Negative) Urine Ketones (Negative) Ur Leukocyte Esterase (Negative) Urine WBC (0-5) /hpf Urine Bacteria (None) /hpf Urine Mucus (None) /hpf Assessment and Plan (1) UTI (urinary tract infection) Current Visit: Yes Status: Acute Code(s): N39.0 - URINARY TRACT INFECTION, SITE NOT SPECIFIED SNOMED Code(s): 55812524 (2) Sepsis Current Visit: Yes Status: Acute Code(s): A41.9 - SEPSIS, UNSPECIFIED ORGANISM SNOMED Code(s): 27436807 Plan: 1patient was in the hospital with weakness dizziness and this patient to have a low-grade fever 100 F, the patient-also did have elevated white count however no clear focus of infection with initial work-up negative including a negative UA chest x-ray was negative no evidence of any joint swelling or cellulitis. 2blood cultures currently pending repeat UA is positive procalcitonin is trending down. 3we will wait for the CT abdominal pelvis to be completed. 4we will keep the patient on Unasyn in view of clinical improvement while waiting for the culture to finalize Dictation was produced using [employer] dictation software. please excuse any grammatical, word or spelling errors. Time with Patient: Less than 30
--- NOTE | 2023-01-01 22:47 | P.PN ---
Subjective This is a pleasant 87 years old female with past medical history of hypertension Patient lives by herself in her apartment, she walks short distances using a walker Yesterday she had a dizzy spell that lasted for a few minutes without passing out so she decided to come to the hospital. Other than that she denies any other symptoms except for mild generalized weakness. She denies headache, weakness numbness, no chest pain shortness of breath or coughing. No diarrhea, no abdominal pain or vomiting. She has somewhat limited appetite today. She denies dysuria or urgency about she thinks her urine smells more than usual. No rash. She denies smoking alcohol or illicit drugs. Orthostatic vitals are positive Vitals are stable on admission. However O and today she developed low-grade fever around 100 showing mild leukocytosis of 14.8. Rest of CBC, INR and BMP is unremarkable. Liver enzymes not elevated. Urine analysis looks clear Chest x-ray: No acute cardiopulmonary process EKG shows sinus tachycardia 100 01/01/2023 Awake alert, no dizziness, Denies urinary symptoms, no GI symptoms, no abdominal pain. The risks diet well. No other symptoms. Patient has no focus of infection however sepsis is strongly suspected because of fever and leukocytosis and significantly elevated pro-calcitonin at 23.0 Patient received extra-axial and her leukocytosis back to normal 7.1, fever subsided and pro-calcitonin coming down to 17.0 CT of the abdomen and pelvis is unremarkable Cardiology input is appreciated Patient placed on normal saline and increased today to 100 mL per hour Continue ceftriaxone Possible discharge in 24-48 hours Objective - Vital Signs Vital signs: Vital Signs Temp 98.0 F 01/01/23 07:00 Pulse 73 01/01/23 08:48 Resp 17 01/01/23 07:00 BP 138/63 01/01/23 08:48 Pulse Ox 96 01/01/23 07:00 FiO2 Intake & Output 12/31/22 01/01/23 01/01/23 18:59 06:59 18:59 Intake Total 591 Balance 591 Weight 72.575 kg Intake: Oral 591 Other: # Voids 1 1 # Bowel Movements 1 - Exam GENERAL: The patient is alert and oriented x3, not in any acute distress. Well developed, well nourished. HEENT: Pupils are round and equally reacting to light. EOMI. No scleral icterus. No conjunctival pallor. Normocephalic, atraumatic. No pharyngeal erythema. No thyromegaly. CARDIOVASCULAR: S1 and S2 present. No murmurs, rubs, or gallops. PULMONARY: Chest is clear to auscultation, no wheezing , no crackles. ABDOMEN: Soft, nontender, nondistended, normoactive bowel sounds. No palpable organomegaly. MUSCULOSKELETAL: No joint swelling or deformity. EXTREMITIES: No cyanosis, clubbing, or pedal edema. NEUROLOGICAL: Gross neurological examination did not reveal any focal deficits. SKIN: No rashes. no petechiae. - Labs CBC & Chem 7: 01/01/23 06:03 01/01/23 06:03 Labs: Abnormal Lab Results - Last 24 Hours (Table) 12/31/22 12/31/22 01/01/23 Range/Units 00:54 13:16 03:18 WBC 15.6 H (3.8-10.6) k/uL RDW (11.5-14.5) % Lymphocytes # (0.90-5.00) X 10*3/uL Est GFR (CKD-EPI) (>=60) C-Reactive Protein (0.00-0.80) mg/dL Total Protein (6.2-8.2) d/dL Albumin (3.8-4.9) d/dL Albumin/Globulin Ratio (1.60-3.17) Ratio Procalcitonin 23.00 H (0.02-0.09) ng/mL Urine Protein 1+ H (Negative) Urine Ketones 1+ H (Negative) Ur Leukocyte Esterase Moderate H (Negative) Urine WBC 16 H (0-5) /hpf Urine Bacteria Rare H (None) /hpf Urine Mucus Rare H (None) /hpf 01/01/23 01/01/23 01/01/23 Range/Units 06:03 06:03 06:03 WBC (3.8-10.6) k/uL RDW 15.8 H (11.5-14.5) % Lymphocytes # 0.79 L (0.90-5.00) X 10*3/uL Est GFR (CKD-EPI) 54 L (>=60) C-Reactive Protein 10.70 H (0.00-0.80) mg/dL Total Protein 5.4 L (6.2-8.2) d/dL Albumin 3.3 L (3.8-4.9) d/dL Albumin/Globulin Ratio 1.57 L (1.60-3.17) Ratio Procalcitonin 14.30 H (0.02-0.09) ng/mL Urine Protein (Negative) Urine Ketones (Negative) Ur Leukocyte Esterase (Negative) Urine WBC (0-5) /hpf Urine Bacteria (None) /hpf Urine Mucus (None) /hpf Assessment and Plan Assessment: dizziness and PRE-Syncope secondary to orthostatic hypotension Possible sepsis with fever and mild leukocytosis poor Oral intake Hypertension Plan: Continue with IV fluid Continue with ceftriaxone Infectious disease and Cardiology consult is appreciated Aspirin and by knife setter grinder machine Labs and medication were reviewed.. Continue same treatment. Continue with symptomatic treatment. Resume home medication. Monitor labs and vitals. DVT and GI prophylaxis. Further recommendations as per clinical course of the patient DVT prophylaxis: Subcutaneous heparin GI Prophylaxis: Pepcid PT/OT:Home health care versus [facility] Prognosis is guarded Possible discharge in 24-48 hours if she keeps improving
[2023-01-02] MEDS: MIDODRINE 5 MG TAB PO SCH ×3 (05:38→19:51)
[2023-01-02] MEDS: SODIUM CHLORIDE 0.9% 1,000 ML IV SCH (05:40)
[2023-01-02] MEDS: ASPIRIN 81 MG PO SCH (08:52)
[2023-01-02] MEDS: FAMOTIDINE 20 MG TAB PO SCH (08:53)
[2023-01-02] MEDS: HEPARIN SODIUM,PORCINE 5,000 UNIT/ML 1 ML VIAL SQ SCH ×2 (08:53→20:40)
--- NOTE | 2023-01-02 09:21 | P.PN ---
Subjective HISTORY OF PRESENT ILLNESS: This is a 87-year-old female with a past medical history significant for hypertension. 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 We have been asked to see the patient in consultation for dizziness. Patient examined at the bedside. Patient presented to the hospital with a chief complaint of feeling dizzy over the past couple days. She states that she felt she was going to pass out but never had any actual syncopal events. She denies any history of syncope. She states that she has not been drinking much fluid for the past few days and feels dehydrated. She denies any chest pain or pressure. She denies any shortness of breath. Orthostatic blood pressures were positive with a supine blood pressure of 147/72 and a standing blood pressure of 91/50. * EKG reveals sinus tachycardia with no signs of acute ischemia * Chest xray negative for acute process * Laboratory data: WBC 14.8. Hemoglobin 14.5. Platelet count 369. Sodium 135. Potassium 3.8. BUN 29. Creatinine 1.02. * Current home cardiac medications include amlodipine 5 mg twice a day, losartan 100 mg daily, aspirin 81 mg daily 01/02/2023 Patient examined this morning at the bedside. Patient currently denies chest pain or pressure. She denies shortness of breath. Denies dizziness or lightheadedness. Echocardiogram completed revealing ejection fraction 55-60%, mild pulmonary hypertension, mild mitral regurgitation, and mild tricuspid regurgitation. Orthostatic blood pressures obtained by nursing this morning revealed supine blood pressure of 146/59. Sitting blood pressure 126/59. standing blood pressure 154/112. PHYSICAL EXAM: VITAL SIGNS: Reviewed. GENERAL: Well-developed in no acute distress. HEENT: Head is normocephalic. Pupils are equal, round. Sclerae anicteric. Mucous membranes of the mouth are moist. Neck supple. No JVD or thyromegaly LUNGS: Respirations even and unlabored. Lungs essentially clear to auscultation bilaterally. HEART: Regular rate and rhythm. S1 and S2 heard. ABDOMEN: Soft. Nondistended. Nontender. EXTREMITIES: Normal range of motion. No clubbing or cyanosis. Peripheral pulses intact. No lower extremity edema NEUROLOGIC: Awake and alert. Oriented x 3. ASSESSMENT: Dizziness, resolved Orthostatic hypotension, resolved History of hypertension Decreased oral intake, per patient PLAN: Continue Midodrine Add Norvasc 2.5mg BID Patient may be discharged home this afternoon from a cardiac standpoint She will follow up outpatient with Dr. Woods Nurse practitioner note has been reviewed by physician. Signing provider agrees with the documented findings, assessment, and plan of care. Objective - Vital Signs Vital signs: Vital Signs Temp 98.6 F 01/02/23 00:47 Pulse 71 01/02/23 00:47 Resp 16 01/02/23 00:47 BP 164/76 01/02/23 00:47 Pulse Ox 94 L 01/02/23 00:47 FiO2 Intake & Output 01/01/23 01/02/23 01/02/23 18:59 06:59 18:59 Other: # Voids 1 2 # Bowel Movements 2 - Labs CBC & Chem 7: 01/01/23 06:03 01/01/23 06:03 Labs: Abnormal Lab Results - Last 24 Hours (Table) 01/01/23 01/01/23 01/01/23 Range/Units 06:03 06:03 06:03 RDW 15.8 H (11.5-14.5) % Lymphocytes # 0.79 L (0.90-5.00) X 10*3/uL Est GFR (CKD-EPI) 54 L (>=60) C-Reactive Protein 10.70 H (0.00-0.80) mg/dL Total Protein 5.4 L (6.2-8.2) d/dL Albumin 3.3 L (3.8-4.9) d/dL Albumin/Globulin Ratio 1.57 L (1.60-3.17) Ratio Procalcitonin 14.30 H (0.02-0.09) ng/mL Microbiology - Last 24 Hours (Table) 12/31/22 13:16 Blood Culture - Preliminary Blood
--- NOTE | 2023-01-02 11:41 | P.PN ---
Subjective Progress Note Date: 01/02/23 Principal diagnosis: Fever ?UTI Patient is a 87-year-old female with a past medical history significant for hypertension osteoarthritis former smoker presenting to the [facility] after midnight complaining of dizziness, patient did have a low-grade fever and elevated white count with a chest x-ray negative urine negative. On today's evaluation that is 01/02/2023, the patient denies any fever or any chills, , the patient is breathing comfortably on room air , the patient denies chest pain and no significant cough, patient denies nausea / vomiting or diarrhea and no abdominal pain Patient white count normalized to 7.19, creatinine is 1.0 as of 01/01/2023 repeat UA is positive CT abdominal pelvis did not show any acute abnormality Objective - Vital Signs Vital signs: Vital Signs Temp 98.4 F 01/02/23 07:00 Pulse 64 01/02/23 07:00 Resp 16 01/02/23 07:00 BP 159/68 01/02/23 07:00 Pulse Ox 95 01/02/23 07:00 FiO2 Intake & Output 01/01/23 01/02/23 01/02/23 18:59 06:59 18:59 Other: # Voids 1 2 # Bowel Movements 2 - Exam GENERAL DESCRIPTION: Elderly female lying in bed in no distress RESPIRATORY SYSTEM: Unlabored breathing , decreased breath sounds at bases HEART: S1 S2 regular rate and rhythm ,no loud murmurs ABDOMEN: Soft , no tenderness EXTREMITIES: No edema feet - Labs CBC & Chem 7: 01/01/23 06:03 01/01/23 06:03 Labs: Abnormal Lab Results - Last 24 Hours (Table) 01/01/23 Range/Units 06:03 RDW 15.8 H (11.5-14.5) % Lymphocytes # 0.79 L (0.90-5.00) X 10*3/uL Microbiology - Last 24 Hours (Table) 12/31/22 13:16 Blood Culture - Preliminary Blood Assessment and Plan (1) UTI (urinary tract infection) Current Visit: Yes Status: Acute Code(s): N39.0 - URINARY TRACT INFECTION, SITE NOT SPECIFIED SNOMED Code(s): 67401258 (2) Sepsis Current Visit: Yes Status: Acute Code(s): A41.9 - SEPSIS, UNSPECIFIED ORGANISM SNOMED Code(s): 09252785 Plan: 1patient was in the hospital with weakness dizziness and this patient to have a low-grade fever 100 F, the patient-also did have elevated white count however no clear focus of infection with initial work-up negative including a negative UA chest x-ray was negative no evidence of any joint swelling or cellulitis. 2blood cultures currently pending repeat UA is positive procalcitonin is trending down. 3- the CT abdominal pelvis did not show any acute abnormality 4patient to continue with the Rocephin with a plan to finish therapy with oral Ceftin discussed with the admitting physician Dictation was produced using [employer] dictation software. please excuse any grammatical, word or spelling errors. Time with Patient: Less than 30
[2023-01-02] MEDS: amLODIPine 2.5 MG TAB PO SCH ×2 (13:55→20:40)
[2023-01-02] MEDS ORDERED: PIPERACILLIN-TAZOBACTAM 3.375 GM in SODIUM CHLORIDE 0.9% 100 ML IVPB STA (19:57)
[2023-01-02 20:39] LABS: HCT 42.6 % (34.0-46.0); MCH 29.5 pg (25.0-35.0); MCHC 32.9 g/dL (31.0-37.0); MCV 89.7 fL (80.0-100.0); Mean Platelet Volume 8.5; Platelet Count 292 k/uL (150-450); RBC 4.74 m/uL (3.80-5.40); RDW 14.8 % (11.5-15.5); WBC 5.7 k/uL (3.8-10.6)
[2023-01-03] MEDS: PIPERACILLIN-TAZOBACTAM 3.375 GM in SODIUM CHLORIDE 0.9% 100 ML IVPB SCH ×3 (01:17→17:00)
[2023-01-03] MEDS: MIDODRINE 5 MG TAB PO SCH (06:24)
[2023-01-03] MEDS: amLODIPine 2.5 MG TAB PO SCH (09:02)
[2023-01-03] MEDS: HEPARIN SODIUM,PORCINE 5,000 UNIT/ML 1 ML VIAL SQ SCH ×2 (09:03→20:07)
[2023-01-03] MEDS: FAMOTIDINE 20 MG TAB PO SCH (09:03)
[2023-01-03] MEDS: amLODIPine 5 MG TAB PO SCH ×2 (09:03→20:07)
[2023-01-03] MEDS: ASPIRIN 81 MG PO SCH (09:03)
--- NOTE | 2023-01-03 10:00 | P.PN ---
Subjective HISTORY OF PRESENT ILLNESS: This is a 87-year-old female with a past medical history significant for hypertension. 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 We have been asked to see the patient in consultation for dizziness. Patient examined at the bedside. Patient presented to the hospital with a chief complaint of feeling dizzy over the past couple days. She states that she felt she was going to pass out but never had any actual syncopal events. She denies any history of syncope. She states that she has not been drinking much fluid for the past few days and feels dehydrated. She denies any chest pain or pressure. She denies any shortness of breath. Orthostatic blood pressures were positive with a supine blood pressure of 147/72 and a standing blood pressure of 91/50. * EKG reveals sinus tachycardia with no signs of acute ischemia * Chest xray negative for acute process * Laboratory data: WBC 14.8. Hemoglobin 14.5. Platelet count 369. Sodium 135. Potassium 3.8. BUN 29. Creatinine 1.02. * Current home cardiac medications include amlodipine 5 mg twice a day, losartan 100 mg daily, aspirin 81 mg daily 01/02/2023 Patient examined this morning at the bedside. Patient currently denies chest pain or pressure. She denies shortness of breath. Denies dizziness or lightheadedness. Echocardiogram completed revealing ejection fraction 55-60%, mild pulmonary hypertension, mild mitral regurgitation, and mild tricuspid regurgitation. Orthostatic blood pressures obtained by nursing this morning revealed supine blood pressure of 146/59. Sitting blood pressure 126/59. standing blood pressure 154/112. 01/03/2023 Patient examined this morning. She is sitting up in a chair. Patient denies chest pain or pressure. She denies shortness of breath. She denies dizziness. Patient's blood pressures are elevated with a systolic in the 180s. Her Midodine has been held. PHYSICAL EXAM: VITAL SIGNS: Reviewed. GENERAL: Well-developed in no acute distress. HEENT: Head is normocephalic. Pupils are equal, round. Sclerae anicteric. Mucous membranes of the mouth are moist. Neck supple. No JVD or thyromegaly LUNGS: Respirations even and unlabored. Lungs essentially clear to auscultation bilaterally. HEART: Regular rate and rhythm. S1 and S2 heard. ABDOMEN: Soft. Nondistended. Nontender. EXTREMITIES: Normal range of motion. No clubbing or cyanosis. Peripheral pulses intact. No lower extremity edema NEUROLOGIC: Awake and alert. Oriented x 3. ASSESSMENT: Dizziness, resolved Orthostatic hypotension, resolved History of hypertension Decreased oral intake, per patient PLAN: Discontinue Midodrine Increase amlodipine to 5 mg twice a day. Continue to monitor blood pressure Patient may be discharged home this afternoon from a cardiac standpoint Patient to follow-up post discharge with Dr. Woods Nurse practitioner note has been reviewed by physician. Signing provider agrees with the documented findings, assessment, and plan of care. Objective - Vital Signs Vital signs: Vital Signs Temp 98.4 F 01/03/23 08:00 Pulse 60 01/03/23 08:00 Resp 15 01/03/23 08:00 BP 170/84 01/03/23 08:00 Pulse Ox 96 01/03/23 08:00 FiO2 Intake & Output 01/02/23 01/03/23 01/03/23 18:59 06:59 18:59 Intake Total 591 Balance 591 Intake: Oral 591 Other: # Voids 3 3 - Labs CBC & Chem 7: 01/02/23 20:17 01/01/23 06:03 Labs: Microbiology - Last 24 Hours (Table) 12/31/22 13:16 Blood Culture Gram Stain - Preliminary Blood Blood Culture - Preliminary
[2023-01-03 10:31] LABS: HCT 44.1 % (37.2-46.3); HGB 13.9 d/dL (12.0-15.0); MCH 28.5 pg (27.0-32.0); MCHC 31.5 d/dL (32.0-37.0); MCV 90.4 FL (80.0-97.0); Mean Platelet Volume 11.3 FL (9.5-12.2); NRBC Per 100 WBC 0 X 10*3/uL (0.00-0.01); Platelet Count 323 X 10*3/uL (140-440); RBC 4.88 X 10*6/uL (4.10-5.20); RDW 15.6 % (11.5-14.5); WBC 5.68 X 10*3/uL (4.50-10.00)
--- NOTE | 2023-01-03 12:35 | P.PN ---
Subjective This is a pleasant 87 years old female with past medical history of hypertension Patient lives by herself in her apartment, she walks short distances using a walker Yesterday she had a dizzy spell that lasted for a few minutes without passing out so she decided to come to the hospital. Other than that she denies any other symptoms except for mild generalized weakness. She denies headache, weakness numbness, no chest pain shortness of breath or coughing. No diarrhea, no abdominal pain or vomiting. She has somewhat limited appetite today. She denies dysuria or urgency about she thinks her urine smells more than usual. No rash. She denies smoking alcohol or illicit drugs. Orthostatic vitals are positive Vitals are stable on admission. However O and today she developed low-grade fever around 100 showing mild leukocytosis of 14.8. Rest of CBC, INR and BMP is unremarkable. Liver enzymes not elevated. Urine analysis looks clear Chest x-ray: No acute cardiopulmonary process EKG shows sinus tachycardia 100 01/01/2023 Awake alert, no dizziness, Denies urinary symptoms, no GI symptoms, no abdominal pain. The risks diet well. No other symptoms. Patient has no focus of infection however sepsis is strongly suspected because of fever and leukocytosis and significantly elevated pro-calcitonin at 23.0 Patient received extra-axial and her leukocytosis back to normal 7.1, fever subsided and pro-calcitonin coming down to 17.0 CT of the abdomen and pelvis is unremarkable Cardiology input is appreciated Patient placed on normal saline and increased today to 100 mL per hour Continue ceftriaxone Possible discharge in 24-48 hours 01/02/2023 pt is clinically improving , she feels stronger, and she denies any sign or symptoms he labs from morning did not result soon even when we checked in the evening despite several calls to the labs she remain on antibiotics with rocepin, ct of the abd is negative , repeat ua showing possible UTI , pt denies specific urinary signs or symptoms but sill i think possibly uti is the source wbc coming down , fever coming down as well as the procalcitonin , i think pt is responding to rocephin we will keep monitoring , the input from id is appreciated Objective - Vital Signs Vital signs: Vital Signs Temp 97.8 F 01/02/23 15:30 Pulse 61 01/02/23 15:30 Resp 20 01/02/23 15:30 BP 150/61 01/02/23 15:30 Pulse Ox 95 01/02/23 15:30 FiO2 Intake & Output 01/01/23 01/02/23 01/02/23 18:59 06:59 18:59 Intake Total 591 Balance 591 Intake: Oral 591 Other: # Voids 1 2 3 # Bowel Movements 2 - Exam GENERAL: The patient is alert and oriented x3, not in any acute distress. Well developed, well nourished. HEENT: Pupils are round and equally reacting to light. EOMI. No scleral icterus. No conjunctival pallor. Normocephalic, atraumatic. No pharyngeal erythema. No thyromegaly. CARDIOVASCULAR: S1 and S2 present. No murmurs, rubs, or gallops. PULMONARY: Chest is clear to auscultation, no wheezing , no crackles. ABDOMEN: Soft, nontender, nondistended, normoactive bowel sounds. No palpable organomegaly. MUSCULOSKELETAL: No joint swelling or deformity. EXTREMITIES: No cyanosis, clubbing, or pedal edema. NEUROLOGICAL: Gross neurological examination did not reveal any focal deficits. SKIN: No rashes. no petechiae. - Labs CBC & Chem 7: 01/02/23 20:17 01/01/23 06:03 Labs: Microbiology - Last 24 Hours (Table) 12/31/22 13:16 Blood Culture - Preliminary Blood Assessment and Plan Assessment: dizziness and PRE-Syncope secondary to orthostatic hypotension Possible sepsis with fever and mild leukocytosis poor Oral intake Hypertension Plan: Continue with IV fluid Continue with ceftriaxone Infectious disease and Cardiology consult is appreciated Aspirin and by lens grinder follow up the culture results Labs and medication were reviewed.. Continue same treatment. Continue with symptomatic treatment. Resume home medication. Monitor labs and vitals. DVT and GI prophylaxis. Further recommendations as per clinical course of the patient DVT prophylaxis: Subcutaneous heparin GI Prophylaxis: Pepcid PT/OT:Home health care versus [facility] Prognosis is guarded
--- NOTE | 2023-01-03 12:37 | P.PN ---
Subjective This is a pleasant 87 years old female with past medical history of hypertension Patient lives by herself in her apartment, she walks short distances using a walker Yesterday she had a dizzy spell that lasted for a few minutes without passing out so she decided to come to the hospital. Other than that she denies any other symptoms except for mild generalized weakness. She denies headache, weakness numbness, no chest pain shortness of breath or coughing. No diarrhea, no abdominal pain or vomiting. She has somewhat limited appetite today. She denies dysuria or urgency about she thinks her urine smells more than usual. No rash. She denies smoking alcohol or illicit drugs. Orthostatic vitals are positive Vitals are stable on admission. However O and today she developed low-grade fever around 100 showing mild leukocytosis of 14.8. Rest of CBC, INR and BMP is unremarkable. Liver enzymes not elevated. Urine analysis looks clear Chest x-ray: No acute cardiopulmonary process EKG shows sinus tachycardia 100 01/01/2023 Awake alert, no dizziness, Denies urinary symptoms, no GI symptoms, no abdominal pain. The risks diet well. No other symptoms. Patient has no focus of infection however sepsis is strongly suspected because of fever and leukocytosis and significantly elevated pro-calcitonin at 23.0 Patient received extra-axial and her leukocytosis back to normal 7.1, fever subsided and pro-calcitonin coming down to 17.0 CT of the abdomen and pelvis is unremarkable Cardiology input is appreciated Patient placed on normal saline and increased today to 100 mL per hour Continue ceftriaxone Possible discharge in 24-48 hours 01/02/2023 pt is clinically improving , she feels stronger, and she denies any sign or symptoms he labs from morning did not result soon even when we checked in the evening despite several calls to the labs she remain on antibiotics with rocepin, ct of the abd is negative , repeat ua showing possible UTI , pt denies specific urinary signs or symptoms but sill i think possibly uti is the source wbc coming down , fever coming down as well as the procalcitonin , i think pt is responding to rocephin we will keep monitoring , the input from id is appreciated 01/03/2023 Patient remains asymptomatic and improvement, she feels stronger and she wants to go home Wbc, fever and pro-calcitonin all are trending down with Rocephin Follow-up her blood culture came back positive for gram-negative bacilli Antibiotics were adjusted to Zosyn for now. We will keep monitoring Objective - Vital Signs Vital signs: Vital Signs Temp 98.4 F 01/03/23 08:00 Pulse 65 01/03/23 11:30 Resp 15 01/03/23 09:03 BP 184/73 01/03/23 11:30 Pulse Ox 96 01/03/23 08:00 FiO2 Intake & Output 01/02/23 01/03/23 01/03/23 18:59 06:59 18:59 Intake Total 591 240 Balance 591 240 Intake: Oral 591 240 Other: Voiding Method Toilet # Voids 3 3 1 - Exam GENERAL: The patient is alert and oriented x3, not in any acute distress. Well developed, well nourished. HEENT: Pupils are round and equally reacting to light. EOMI. No scleral icterus. No conjunctival pallor. Normocephalic, atraumatic. No pharyngeal erythema. No thyromegaly. CARDIOVASCULAR: S1 and S2 present. No murmurs, rubs, or gallops. PULMONARY: Chest is clear to auscultation, no wheezing , no crackles. ABDOMEN: Soft, nontender, nondistended, normoactive bowel sounds. No palpable organomegaly. MUSCULOSKELETAL: No joint swelling or deformity. EXTREMITIES: No cyanosis, clubbing, or pedal edema. NEUROLOGICAL: Gross neurological examination did not reveal any focal deficits. SKIN: No rashes. no petechiae. - Labs CBC & Chem 7: 01/02/23 20:17 01/01/23 06:03 Labs: Abnormal Lab Results - Last 24 Hours (Table) 01/02/23 01/02/23 Range/Units 05:19 05:19 MCHC 31.5 L (32.0-37.0) d/dL RDW 15.6 H (11.5-14.5) % Procalcitonin 8.26 H (0.02-0.09) ng/mL Microbiology - Last 24 Hours (Table) 12/31/22 13:16 Blood Culture Gram Stain - Preliminary Blood Blood Culture - Preliminary Gram Neg Bacilli Assessment and Plan Assessment: Gram-negative bacteremia Possible acute renal tract infection was the source Sepsis with fever and mild leukocytosis dizziness and PRE-Syncope secondary to orthostatic hypotension, improved poor Oral intake, improved Hypertension Plan: Continue with IV fluid Continue with ceftriaxone. However antibiotics was adjusted to Zosyn by ID team Infectious disease and Cardiology consult is appreciated Aspirin and by carbon brush maker follow up the culture results Labs and medication were reviewed.. Continue same treatment. Continue with symptomatic treatment. Resume home medication. Monitor labs and vitals. DVT and GI prophylaxis. Further recommendations as per clinical course of the patient DVT prophylaxis: Subcutaneous heparin GI Prophylaxis: Pepcid PT/OT:Home health care versus [facility] Prognosis is guarded
[2023-01-03] MEDS ORDERED: hydrALAZINE HCL 25 MG TAB PO PRN (13:02)
[2023-01-03] MEDS ORDERED: hydrALAZINE HCL 25 MG TAB PO STA (13:02)
--- NOTE | 2023-01-03 15:19 | P.PN ---
Subjective Progress Note Date: 01/03/23 Principal diagnosis: Fever ?UTI Patient is a 87-year-old female with a past medical history significant for hypertension osteoarthritis former smoker [facility] complaining of dizziness, patient did have a low-grade fever and elevated white count with a chest x-ray negative urine negative. On today's evaluation that is 01/03/2023, the patient remains to be afebrile, , the patient is breathing comfortably on room air , the patient denies chest pain shortness of breath or cough, patient denies nausea / vomiting and no abdominal pain , no diarrhea reported Patient white count of 5.7, blood cultures came positive with a Pseudomonas, repeat UA is positive CT abdominal pelvis did not show any acute abnormality Objective - Vital Signs Vital signs: Vital Signs Temp 98.4 F 01/03/23 08:00 Pulse 65 01/03/23 11:30 Resp 15 01/03/23 09:03 BP 184/73 01/03/23 11:30 Pulse Ox 96 01/03/23 08:00 FiO2 Intake & Output 01/02/23 01/03/23 01/03/23 18:59 06:59 18:59 Intake Total 591 240 Balance 591 240 Intake: Oral 591 240 Other: Voiding Method Toilet # Voids 3 3 1 - Exam GENERAL DESCRIPTION: Elderly female lying in bed in no distress RESPIRATORY SYSTEM: Unlabored breathing , decreased breath sounds at bases HEART: S1 S2 regular rate and rhythm ,no loud murmurs ABDOMEN: Soft , no tenderness EXTREMITIES: No edema feet - Labs CBC & Chem 7: 01/02/23 20:17 01/01/23 06:03 Labs: Abnormal Lab Results - Last 24 Hours (Table) 01/02/23 01/02/23 Range/Units 05:19 05:19 MCHC 31.5 L (32.0-37.0) d/dL RDW 15.6 H (11.5-14.5) % Procalcitonin 8.26 H (0.02-0.09) ng/mL Microbiology - Last 24 Hours (Table) 12/31/22 13:16 Blood Culture Gram Stain - Preliminary Blood Blood Culture - Preliminary Gram Neg Bacilli Assessment and Plan (1) UTI (urinary tract infection) Current Visit: Yes Status: Acute Code(s): N39.0 - URINARY TRACT INFECTION, SITE NOT SPECIFIED SNOMED Code(s): 41134745 (2) Sepsis Current Visit: Yes Status: Acute Code(s): A41.9 - SEPSIS, UNSPECIFIED ORGANISM SNOMED Code(s): 74969665 (3) Bacteremia due to Pseudomonas Current Visit: Yes Status: Acute Code(s): R78.81 - BACTEREMIA; B96.5 - PSEUDOMONAS (MALLEI) CAUSING DISEASES CLASSD [id number] SNOMED Code(s): 4505037452 Plan: 1patient was in the hospital with weakness dizziness and this patient to have a low-grade fever 100 F, the patient-also did have elevated white count however no clear focus of infection with initial work-up negative including a negative UA chest x-ray was negative no evidence of any joint swelling or cellulitis. 2blood cultures did grow pseudomonas aeruginosa, blood culture had been repeated 3- the CT abdominal pelvis did not show any acute abnormality 4patient antibiotics were adjusted to Zosyn last night and will be continued while waiting for sensitivities and repeat blood culture to be finalize, daughter at the bedside questions were answered Dictation was produced using [employer] dictation software. please excuse any gr ammatical, word or spelling errors.
--- NOTE | 2023-01-03 18:40 | NM ---
EXAMINATION TYPE: NM WBC whole body DATE OF EXAM: 01/03/2023 COMPARISON: NONE CLINICAL INDICATION: Female, 87 years old with history of bacteremia , source; TECHNIQUE: Following administration of 11.1 mCi Tc99m Ceretec. Images obtained 3 hours post injecti on. FINDINGS: Normal physiological tracer activity is noted in the liver and spleen and in the bone marrow of the a xial and appendicular skeleton. IMPRESSION: Normal white blood cell scan. No evidence for abnormal tracer activity.
[2023-01-04] MEDS: PIPERACILLIN-TAZOBACTAM 3.375 GM in SODIUM CHLORIDE 0.9% 100 ML IVPB SCH ×3 (00:38→15:48)
[2023-01-04] MEDS: amLODIPine 5 MG TAB PO SCH ×2 (08:28→20:38)
[2023-01-04] MEDS: HEPARIN SODIUM,PORCINE 5,000 UNIT/ML 1 ML VIAL SQ SCH ×2 (08:28→20:48)
[2023-01-04] MEDS: FAMOTIDINE 20 MG TAB PO SCH (08:28)
[2023-01-04] MEDS: ASPIRIN 81 MG PO SCH (08:28)
--- NOTE | 2023-01-04 10:37 | P.PN ---
Subjective HISTORY OF PRESENT ILLNESS: This is a 87-year-old female with a past medical history significant for hypertension. Patient does not follow with a motorcycle maker. We have been asked to see the patient in consultation for dizziness. Patient examined at the bedside. Patient presented to the hospital with a chief complaint of feeling dizzy over the past couple days. She states that she felt she was going to pass out but never had any actual syncopal events. She denies any history of syncope. She states that she has not been drinking much fluid for the past few days and feels dehydrated. She denies any chest pain or pressure. She denies any shortness of breath. Orthostatic blood pressures were positive with a supine blood pressure of 147/72 and a standing blood pressure of 91/50. * EKG reveals sinus tachycardia with no signs of acute ischemia * Chest xray negative for acute process * Laboratory data: WBC 14.8. Hemoglobin 14.5. Platelet count 369. Sodium 135. Potassium 3.8. BUN 29. Creatinine 1.02. * Current home cardiac medications include amlodipine 5 mg twice a day, losartan 100 mg daily, aspirin 81 mg daily 01/02/2023 Patient examined this morning at the bedside. Patient currently denies chest pain or pressure. She denies shortness of breath. Denies dizziness or lightheadedness. Echocardiogram completed revealing ejection fraction 55-60%, mild pulmonary hypertension, mild mitral regurgitation, and mild tricuspid regurgitation. Orthostatic blood pressures obtained by nursing this morning revealed supine blood pressure of 146/59. Sitting blood pressure 126/59. standing blood pressure 154/112. 01/03/2023 Patient examined this morning. She is sitting up in a chair. Patient denies chest pain or pressure. She denies shortness of breath. She denies dizziness. Patient's blood pressures are elevated with a systolic in the 180s. Her Midodine has been held. 01/04/2023 Patient examined this morning. She is sitting up in the chair. She denies chest pain or pressure. She denies shortness of breath. Vital signs are stable. Orthostatic blood pressures have improved. PHYSICAL EXAM: VITAL SIGNS: Reviewed. GENERAL: Well-developed in no acute distress. HEENT: Head is normocephalic. Pupils are equal, round. Sclerae anicteric. Mucous membranes of the mouth are moist. Neck supple. No JVD or thyromegaly LUNGS: Respirations even and unlabored. Lungs essentially clear to auscultation bilaterally. HEART: Regular rate and rhythm. S1 and S2 heard. ABDOMEN: Soft. Nondistended. Nontender. EXTREMITIES: Normal range of motion. No clubbing or cyanosis. Peripheral pulses intact. No lower extremity edema NEUROLOGIC: Awake and alert. Oriented x 3. ASSESSMENT: Dizziness, resolved Orthostatic hypotension, resolved History of hypertension Decreased oral intake, per patient PLAN: Continue current dose of amlodipine Patient may be discharged home this afternoon from a cardiac standpoint Patient to follow-up post discharge with Dr. Woods We will sign off. Please reconsult if needed. Nurse practitioner note has been reviewed by physician. Signing provider agrees with the documented findings, assessment, and plan of care. Objective - Vital Signs Vital signs: Vital Signs Temp 98.4 F 01/04/23 08:00 Pulse 70 01/04/23 08:00 Resp 16 01/04/23 08:00 BP 117/65 01/04/23 08:00 Pulse Ox 96 01/04/23 08:00 FiO2 Intake & Output 01/03/23 01/04/23 01/04/23 18:59 06:59 18:59 Intake Total 458 Balance 458 Intake: Oral 458 Other: Voiding Method Toilet Toilet Toilet # Voids 1 4 - Labs CBC & Chem 7: 01/02/23 20:17 01/01/23 06:03 Labs: Abnormal Lab Results - Last 24 Hours (Table) 01/02/23 Range/Units 05:19 Procalcitonin 8.26 H (0.02-0.09) ng/mL Microbiology - Last 24 Hours (Table) 01/02/23 20:17 Blood Culture - Preliminary Blood 01/01/23 03:18 Urine Culture - Preliminary Urine,Voided Gram Neg Bacilli 12/31/22 13:16 Blood Culture Gram Stain - Preliminary Blood Blood Culture - Preliminary Gram Neg Bacilli
--- NOTE | 2023-01-04 12:38 | P.PN ---
Subjective Progress Note Date: 01/04/23 Principal diagnosis: Fever ?UTI Patient is a 87-year-old female with a past medical history significant for hypertension osteoarthritis former smoker [facility] complaining of dizziness, patient did have a low-grade fever and elevated white count with a chest x-ray negative urine negative. On today's evaluation that is 01/04/2023, the patient continues to be afebrile, , the patient is breathing comfortably on room air , the patient denies chest pain shortness or cough, patient denies nausea / vomiting and no diarrhea, denies having any abdominal pain, the patient complaining of some dizziness today but no headache no pain or drainage from ears Patient white count of 5.7 as of 01/02/2023, blood cultures came positive with a Pseudomonas sensitivities currently pending, repeat UA is positive and cultures are growing gram-negative, CT abdominal pelvis did not show any acute abnormality Objective - Vital Signs Vital signs: Vital Signs Temp 98.4 F 01/04/23 08:00 Pulse 70 01/04/23 08:00 Resp 16 01/04/23 08:00 BP 117/65 01/04/23 08:00 Pulse Ox 96 01/04/23 08:00 FiO2 Intake & Output 01/03/23 01/04/23 01/04/23 18:59 06:59 18:59 Intake Total 458 Balance 458 Intake: Oral 458 Other: Voiding Method Toilet Toilet Toilet # Voids 1 4 - Exam GENERAL DESCRIPTION: Elderly female lying in bed in no distress RESPIRATORY SYSTEM: Unlabored breathing , decreased breath sounds at bases HEART: S1 S2 regular rate and rhythm ,no loud murmurs ABDOMEN: Soft , no tenderness EXTREMITIES: No edema feet - Labs CBC & Chem 7: 01/02/23 20:17 01/01/23 06:03 Labs: Microbiology - Last 24 Hours (Table) 01/02/23 20:17 Blood Culture - Preliminary Blood 01/01/23 03:18 Urine Culture - Preliminary Urine,Voided Gram Neg Bacilli 12/31/22 13:16 Blood Culture Gram Stain - Preliminary Blood Blood Culture - Preliminary Gram Neg Bacilli Assessment and Plan (1) UTI (urinary tract infection) Current Visit: Yes Status: Acute Code(s): N39.0 - URINARY TRACT INFECTION, SITE NOT SPECIFIED SNOMED Code(s): 75650236 (2) Sepsis Current Visit: Yes Status: Acute Code(s): A41.9 - SEPSIS, UNSPECIFIED ORGANISM SNOMED Code(s): 27428849 (3) Bacteremia due to Pseudomonas Current Visit: Yes Status: Acute Code(s): R78.81 - BACTEREMIA; B96.5 - PSEUDOMONAS (MALLEI) CAUSING DISEASES CLASSD ELSWHR SNOMED Code(s): 6450324513 Plan: 1patient was in the hospital with weakness dizziness and this patient to have a low-grade fever 100 F, the patient-also did have elevated white count however no clear focus of infection with initial work-up negative including a negative UA chest x-ray was negative no evidence of any joint swelling or cellulitis. 2blood cultures did grow pseudomonas aeruginosa, blood culture had been repeated, here is also showing gram-negative 3- the CT abdominal pelvis did not show any acute abnormality 4patient to continue with Zosyn while waiting for the culture finalized to determine her discharge antibiotics Dictation was produced using [employer] dictation software. please excuse any grammatical, word or spelling errors.
[2023-01-04] MEDS ORDERED: HALOPERIDOL LACTATE 5 MG/ML 1 ML VIAL IM PRN (21:25)
[2023-01-05] MEDS: PIPERACILLIN-TAZOBACTAM 3.375 GM in SODIUM CHLORIDE 0.9% 100 ML IVPB SCH ×3 (00:31→17:08)
[2023-01-05] MEDS: HEPARIN SODIUM,PORCINE 5,000 UNIT/ML 1 ML VIAL SQ SCH ×2 (09:29→21:04)
[2023-01-05] MEDS: ASPIRIN 81 MG PO SCH (09:30)
[2023-01-05] MEDS: amLODIPine 5 MG TAB PO SCH ×2 (09:30→21:04)
[2023-01-05] MEDS: FAMOTIDINE 20 MG TAB PO SCH (09:30)
--- NOTE | 2023-01-05 14:42 | P.PN ---
Subjective Progress Note Date: 01/04/23 87 years old female with past medical history of hypertension Patient lives by herself in her apartment, she walks short distances using a walker Yesterday she had a dizzy spell that lasted for a few minutes without passing out so she decided to come to the hospital. Other than that she denies any other symptoms except for mild generalized weakness. She denies headache, weakness numbness, no chest pain shortness of breath or coughing. No diarrhea, no abdominal pain or vomiting. She has somewhat limited appetite today. She denies dysuria or urgency about she thinks her urine smells more than usual. No rash. She denies smoking alcohol or illicit drugs. Orthostatic vitals are positive Vitals are stable on admission. However O and today she developed low-grade fever around 100 showing mild leukocytosis of 14.8. Rest of CBC, INR and BMP is unremarkable. Liver enzymes not elevated. Urine analysis looks clear Chest x-ray: No acute cardiopulmonary process EKG shows sinus tachycardia 100 Objective - Vital Signs Vital signs: Vital Signs Temp 98.4 F 01/04/23 08:00 Pulse 70 01/04/23 08:00 Resp 16 01/04/23 08:00 BP 117/65 01/04/23 08:00 Pulse Ox 96 01/04/23 08:00 FiO2 Intake & Output 01/03/23 01/04/23 01/04/23 18:59 06:59 18:59 Intake Total 458 Balance 458 Intake: Oral 458 Other: Voiding Method Toilet Toilet Toilet # Voids 1 4 - Exam GENERAL: The patient is alert and oriented x3, not in any acute distress. Well developed, well nourished. HEENT: Pupils are round and equally reacting to light. EOMI. No scleral icterus. No conjunctival pallor. Normocephalic, atraumatic. No pharyngeal erythema. No thyromegaly. CARDIOVASCULAR: S1 and S2 present. No murmurs, rubs, or gallops. PULMONARY: Chest is clear to auscultation, no wheezing , no crackles. ABDOMEN: Soft, nontender, nondistended, normoactive bowel sounds. No palpable organomegaly. MUSCULOSKELETAL: No joint swelling or deformity. EXTREMITIES: No cyanosis, clubbing, or pedal edema. NEUROLOGICAL: Gross neurological examination did not reveal any focal deficits. SKIN: No rashes. no petechiae. - Labs CBC & Chem 7: 01/02/23 20:17 01/01/23 06:03 Labs: Microbiology - Last 24 Hours (Table) 12/31/22 13:16 Blood Culture Gram Stain - Final Blood Blood Culture - Final Pseudomonas aeruginosa 01/02/23 20:17 Blood Culture - Preliminary Blood 01/01/23 03:18 Urine Culture - Preliminary Urine,Voided Gram Neg Bacilli Assessment and Plan Assessment: Gram-negative bacteremia Possible acute renal tract infection was the source Sepsis with fever and mild leukocytosis dizziness and PRE-Syncope secondary to orthostatic hypotension, improved poor Oral intake, improved Hypertension Continue with IV fluid Continue with ceftriaxone. However antibiotics was adjusted to Zosyn by ID team Infectious disease and Cardiology consult is appreciated Aspirin and by skip operator follow up the culture results Labs and medication were reviewed.. Continue same treatment. Continue with symptomatic treatment. Resume home medication. Monitor labs and vitals. DVT and GI prophylaxis. Further recommendations as per clinical course of the patient DVT prophylaxis: Subcutaneous heparin GI Prophylaxis: Pepcid PT/OT:Home health care versus [facility] Prognosis is guarded
[2023-01-05 15:05] LABS: Appearance,Urine Clear (Clear); Bilirubin,Urine Negative (Negative); Blood,Urine Negative (Negative); Color,Urine Colorless; Glucose,Urine (UA) Negative (Negative); Ketones,Urine Negative (Negative); Leukocyte Esterase,Urine Negative (Negative); Nitrite,Urine Negative (Negative); Protein,Urine Negative (Negative); Specific Gravity,Urine 1.005 (1.001-1.035); Urobilinogen,Urine <2.0 mg/dL (<2.0)
--- NOTE | 2023-01-05 17:40 | P.PN ---
Subjective Progress Note Date: 01/05/23 Principal diagnosis: Fever ?UTI Patient is a 87-year-old female with a past medical history significant for hypertension osteoarthritis former smoker [facility] complaining of dizziness, patient did have a low-grade fever and elevated white count with a chest x-ray negative urine negative. On today's evaluation that is 01/05/2023, the patient remains to be afebrile, , the patient is breathing comfortably on room air , the patient denies chest pain and no significant cough, patient denies abdominal pain, nausea or vomiting and no diarrhea has been reported by the nursing staff Patient blood cultures came positive with a Pseudomonas sensitive pathogen,However Urine with ESBL e.coli, CT abdominal pelvis did not show any acute abnormality Objective - Vital Signs Vital signs: Vital Signs Temp 98.2 F 01/05/23 08:00 Pulse 78 01/05/23 08:00 Resp 17 01/05/23 08:00 BP 153/72 01/05/23 08:00 Pulse Ox 97 01/05/23 08:00 FiO2 Intake & Output 01/04/23 01/05/23 01/05/23 18:59 06:59 18:59 Intake Total 118 290 Balance 118 290 Intake: Oral 118 290 Other: Voiding Method Toilet Toilet # Voids 1 2 # Bowel Movements 2 - Exam GENERAL DESCRIPTION: Elderly female lying in bed in no distress RESPIRATORY SYSTEM: Unlabored breathing , decreased breath sounds at bases HEART: S1 S2 regular rate and rhythm ,no loud murmurs ABDOMEN: Soft , no tenderness EXTREMITIES: No edema feet - Labs CBC & Chem 7: 01/02/23 20:17 01/01/23 06:03 Labs: Microbiology - Last 24 Hours (Table) 01/02/23 20:17 Blood Culture - Preliminary Blood 01/01/23 03:18 Urine Culture - Final Urine,Voided Escherichia coli 12/31/22 13:16 Blood Culture Gram Stain - Final Blood Blood Culture - Final Pseudomonas aeruginosa Assessment and Plan (1) UTI (urinary tract infection) Current Visit: Yes Status: Acute Code(s): N39.0 - URINARY TRACT INFECTION, SITE NOT SPECIFIED SNOMED Code(s): 11351663 (2) Sepsis Current Visit: Yes Status: Acute Code(s): A41.9 - SEPSIS, UNSPECIFIED ORGANISM SNOMED Code(s): 87887025 (3) Bacteremia due to Pseudomonas Current Visit: Yes Status: Acute Code(s): R78.81 - BACTEREMIA; B96.5 - PSEUDOMONAS (MALLEI) CAUSING DISEASES CLASSD ELSWHR SNOMED Code(s): 3844887373 Plan: 1patient was in the hospital with weakness dizziness and this patient to have a low-grade fever 100 F, the patient-also did have elevated white count however no clear focus of infection with initial work-up negative including a negative UA chest x-ray was negative no evidence of any joint swelling or cellulitis. 2blood cultures did grow pseudomonas aeruginosa, blood culture had been repeated so far negative 3- the CT abdominal pelvis did not show any acute abnormality 4patient urine is Growing ESBL e.coli ?contaminant , will repeat UA and cultures clean catch sample , straight cath if needed , continue Zosyn for bacteremia Dictation was produced using [employer] dictation software. please excuse any grammatical, word or spelling errors.
--- NOTE | 2023-01-05 19:36 | P.PN ---
Subjective Progress Note Date: 01/05/23 87 years old female with past medical history of hypertension Patient lives by herself in her apartment, she walks short distances using a walker Yesterday she had a dizzy spell that lasted for a few minutes without passing out so she decided to come to the hospital. Other than that she denies any other symptoms except for mild generalized weakness. She denies headache, weakness numbness, no chest pain shortness of breath or coughing. No diarrhea, no abdominal pain or vomiting. She has somewhat limited appetite today. She denies dysuria or urgency about she thinks her urine smells more than usual. No rash. She denies smoking alcohol or illicit drugs. Orthostatic vitals are positive Vitals are stable on admission. However O and today she developed low-grade fever around 100 showing mild leukocytosis of 14.8. Rest of CBC, INR and BMP is unremarkable. Liver enzymes not elevated. Urine analysis looks clear Chest x-ray: No acute cardiopulmonary process EKG shows sinus tachycardia 100 01/05/2023 patient was in the hospital with weakness dizziness and this patient to have a low-grade fever 100 F, the patient-also did have elevated white count however no clear focus of infection with initial work-up negative including a negative UA chest x-ray was negative no evidence of any joint swelling or cellulitis. Blood work reveals a WBC of 5.7, hemoglobin of 14.2 and platelet count of 292 blood cultures did grow pseudomonas aeruginosa, blood culture had been repeat ed, here is also showing gram-negative - the CT abdominal pelvis did not show any acute abnormality patient to continue with Zosyn while waiting for the culture finalized to determine her discharge antibiotics Objective - Vital Signs Vital signs: Vital Signs Temp 98.2 F 01/05/23 08:00 Pulse 78 01/05/23 08:00 Resp 17 01/05/23 08:00 BP 153/72 01/05/23 08:00 Pulse Ox 97 01/05/23 08:00 FiO2 Intake & Output 01/04/23 01/05/23 01/05/23 18:59 06:59 18:59 Intake Total 118 580 Balance 118 580 Intake: Oral 118 580 Other: Voiding Method Toilet Toilet # Voids 1 2 # Bowel Movements 2 - Exam GENERAL: The patient is alert and oriented x3, not in any acute distress. Well developed, well nourished. HEENT: Pupils are round and equally reacting to light. EOMI. No scleral icterus. No conjunctival pallor. Normocephalic, atraumatic. No pharyngeal erythema. No thyromegaly. CARDIOVASCULAR: S1 and S2 present. No murmurs, rubs, or gallops. PULMONARY: Chest is clear to auscultation, no wheezing , no crackles. ABDOMEN: Soft, nontender, nondistended, normoactive bowel sounds. No palpable organomegaly. MUSCULOSKELETAL: No joint swelling or deformity. EXTREMITIES: No cyanosis, clubbing, or pedal edema. NEUROLOGICAL: Gross neurological examination did not reveal any focal deficits. SKIN: No rashes. no petechiae. - Labs CBC & Chem 7: 01/02/23 20:17 01/01/23 06:03 Labs: Microbiology - Last 24 Hours (Table) 01/02/23 20:17 Blood Culture - Preliminary Blood 01/01/23 03:18 Urine Culture - Final Urine,Voided Escherichia coli 12/31/22 13:16 Blood Culture Gram Stain - Final Blood Blood Culture - Final Pseudomonas aeruginosa Assessment and Plan Assessment: Gram-negative bacteremia Possible acute renal tract infection was the source Sepsis with fever and mild leukocytosis dizziness and PRE-Syncope secondary to orthostatic hypotension, improved poor Oral intake, improved Hypertension Continue with IV fluid Continue with ceftriaxone. However antibiotics was adjusted to Zosyn by ID team Infectious disease and Cardiology consult is appreciated Aspirin and by heel seat sander follow up the culture results Labs and medication were reviewed.. Continue same treatment. Continue with symptomatic treatment. Resume home medication. Monitor labs and vitals. DVT and GI prophylaxis. Further recommendations as per clinical course of the patient DVT prophylaxis: Subcutaneous heparin GI Prophylaxis: Pepcid PT/OT:Home health care versus [facility] Prognosis is guarded
[2023-01-06] MEDS: PIPERACILLIN-TAZOBACTAM 3.375 GM in SODIUM CHLORIDE 0.9% 100 ML IVPB SCH ×3 (00:59→17:12)
[2023-01-06] MEDS: amLODIPine 5 MG TAB PO SCH ×2 (09:03→20:38)
[2023-01-06] MEDS: HEPARIN SODIUM,PORCINE 5,000 UNIT/ML 1 ML VIAL SQ SCH ×2 (09:03→20:38)
[2023-01-06] MEDS: ASPIRIN 81 MG PO SCH (09:03)
[2023-01-06] MEDS: FAMOTIDINE 20 MG TAB PO SCH (09:03)
[2023-01-06 09:48] LABS: Basophils # (A) 0.11 X 10*3/uL (0.00-0.10); Basophils % (A) 1.2 %; Eosinophils # (A) 0.55 X 10*3/uL (0.04-0.35); Eosinophils % (A) 6.1 %; HCT 43.9 % (37.2-46.3); HGB 13.9 d/dL (12.0-15.0); Lymphocytes # (A) 3.29 X 10*3/uL (0.90-5.00); Lymphocytes % (A) 36.4 %; MCH 27.9 pg (27.0-32.0); MCHC 31.7 d/dL (32.0-37.0); Mean Platelet Volume 11.2 FL (9.5-12.2); Monocytes # (A) 0.78 X 10*3/uL (0.20-1.00); Monocytes % (A) 8.6 %; NRBC Per 100 WBC 0 X 10*3/uL (0.00-0.01); Neutrophils # (A) 4.25 X 10*3/uL (1.80-7.70); Neutrophils % (A) 46.9 %; Platelet Count 414 X 10*3/uL (140-440); RBC 4.99 X 10*6/uL (4.10-5.20); RDW 15.7 % (11.5-14.5); WBC 9.05 X 10*3/uL (4.50-10.00)
[2023-01-06 09:49] LABS: BUN/Creat Ratio 10.78 Ratio (12.00-20.00); Blood Urea Nitrogen 9.7 mg/dL (9.0-27.0); Calcium 9.2 mg/dL (8.7-10.3); Carbon Dioxide 22.1 mmol/L (21.6-31.8); Chloride 107 mmol/L (96-109); Glucose 75 mg/dL (70-110); Sodium 141 mmol/L (135-145)
--- NOTE | 2023-01-06 13:55 | P.PN ---
Subjective Progress Note Date: 01/06/23 87 years old female with past medical history of hypertension Patient lives by herself in her apartment, she walks short distances using a walker Yesterday she had a dizzy spell that lasted for a few minutes without passing out so she decided to come to the hospital. Other than that she denies any other symptoms except for mild generalized weakness. She denies headache, weakness numbness, no chest pain shortness of breath or coughing. No diarrhea, no abdominal pain or vomiting. She has somewhat limited appetite today. She denies dysuria or urgency about she thinks her urine smells more than usual. No rash. She denies smoking alcohol or illicit drugs. Orthostatic vitals are positive Vitals are stable on admission. However O and today she developed low-grade fever around 100 showing mild leukocytosis of 14.8. Rest of CBC, INR and BMP is unremarkable. Liver enzymes not elevated. Urine analysis looks clear Chest x-ray: No acute cardiopulmonary process EKG shows sinus tachycardia 100 01/05/2023 patient was in the hospital with weakness dizziness and this patient to have a low-grade fever 100 F, the patient-also did have elevated white count however no clear focus of infection with initial work-up negative including a negative UA chest x-ray was negative no evidence of any joint swelling or cellulitis. Blood work reveals a WBC of 5.7, hemoglobin of 14.2 and platelet count of 292 blood cultures did grow pseudomonas aeruginosa, blood culture had been repeat ed, here is also showing gram-negative - the CT abdominal pelvis did not show any acute abnormality patient to continue with Zosyn while waiting for the culture finalized to determine her discharge antibiotics 01/06/2023 Patient is seen and evaluated resting in bed with family members at bedside; urine culture and blood culture results discussed with patient and family Vital signs are reviewed and remained stable Blood work reveals to be wheezy of 9.05, hemoglobin of 13.9, platelet count of 414, sodium 141, potassium 4.0, BUN/creatinine of 9.7/0.9; repeat UA is negative so far; pro-calcitonin 8.26 from 14.3 upon admission - Patient remains on IV Zosyn per ID recommendations -- Await final antibiotic recommendations from ID Objective - Vital Signs Vital signs: Vital Signs Temp 98.0 F 01/06/23 08:00 Pulse 66 01/06/23 08:00 Resp 16 01/06/23 08:00 BP 143/73 01/06/23 08:00 Pulse Ox 97 01/06/23 08:00 FiO2 Intake & Output 01/05/23 01/06/23 01/06/23 18:59 06:59 18:59 Intake Total 639 Balance 639 Intake: Oral 639 Other: Voiding Method Toilet # Voids 1 3 - Exam GENERAL: The patient is alert and oriented x3, not in any acute distress. Well developed, well nourished. HEENT: Pupils are round and equally reacting to light. EOMI. No scleral icterus. No conjunctival pallor. Normocephalic, atraumatic. No pharyngeal erythema. No thyromegaly. CARDIOVASCULAR: S1 and S2 present. No murmurs, rubs, or gallops. PULMONARY: Chest is clear to auscultation, no wheezing , no crackles. ABDOMEN: Soft, nontender, nondistended, normoactive bowel sounds. No palpable organomegaly. MUSCULOSKELETAL: No joint swelling or deformity. EXTREMITIES: No cyanosis, clubbing, or pedal edema. NEUROLOGICAL: Gross neurological examination did not reveal any focal deficits. SKIN: No rashes. no petechiae. - Labs CBC & Chem 7: 01/06/23 05:32 01/06/23 05:32 Labs: Abnormal Lab Results - Last 24 Hours (Table) 01/06/23 01/06/23 Range/Units 05:32 05:32 MCHC 31.7 L (32.0-37.0) d/dL RDW 15.7 H (11.5-14.5) % Eosinophils # 0.55 H (0.04-0.35) X 10*3/uL Basophils # 0.11 H (0.00-0.10) X 10*3/uL BUN/Creatinine Ratio 10.78 L (12.00-20.00) Ratio Microbiology - Last 24 Hours (Table) 01/02/23 20:17 Blood Culture - Preliminary Blood Assessment and Plan Assessment: Gram-negative bacteremia Possible acute renal tract infection was the source Sepsis with fever and mild leukocytosis dizziness and PRE-Syncope secondary to orthostatic hypotension, improved poor Oral intake, improved Hypertension Continue with IV fluid Continue with ceftriaxone. However antibiotics was adjusted to Zosyn by ID team Infectious disease and Cardiology consult is appreciated Aspirin and by supervisor pumping station follow up the culture results Labs and medication were reviewed.. Continue same treatment. Continue with symptomatic treatment. Resume home medication. Monitor labs and vitals. DVT and GI prophylaxis. Further recommendations as per clinical course of the patient DVT prophylaxis: Subcutaneous heparin GI Prophylaxis: Pepcid PT/OT:Home health care versus [facility] Prognosis is guarded
--- NOTE | 2023-01-06 21:21 | P.PN ---
Subjective Progress Note Date: 01/06/23 Principal diagnosis: Fever ?UTI Patient is a 87-year-old female with a past medical history significant for hypertension osteoarthritis former smoker presenting [facility] midnight complaining of dizziness, patient did have a low-grade fever and elevated white count with a chest x-ray negative urine negative. On today's evaluation that is 01/06/2023, the patient continues to be afebrile, , the patient is breathing comfortably on room air, the patient denies chest pain shortness of breath or cough, patient denies nausea or vomiting abdominal pain, and no diarrhea has been reported , no new symptoms Patient blood cultures came positive with a Pseudomonas sensitive pathogen,However Urine with ESBL e.coli, CT abdominal pelvis did not show any acute abnormality , UA repeat is negative Objective - Vital Signs Vital signs: Vital Signs Temp 98.0 F 01/06/23 08:00 Pulse 66 01/06/23 08:00 Resp 16 01/06/23 08:00 BP 143/73 01/06/23 08:00 Pulse Ox 97 01/06/23 08:00 FiO2 Intake & Output 01/05/23 01/06/23 01/06/23 18:59 06:59 18:59 Intake Total 639 Balance 639 Intake: Oral 639 Other: Voiding Method Toilet # Voids 1 3 - Exam GENERAL DESCRIPTION: Elderly female lying in bed in no distress RESPIRATORY SYSTEM: Unlabored breathing , decreased breath sounds at bases HEART: S1 S2 regular rate and rhythm ,no loud murmurs ABDOMEN: Soft , no tenderness EXTREMITIES: No edema feet - Labs CBC & Chem 7: 01/06/23 05:32 01/06/23 05:32 Labs: Abnormal Lab Results - Last 24 Hours (Table) 01/06/23 01/06/23 Range/Units 05:32 05:32 MCHC 31.7 L (32.0-37.0) d/dL RDW 15.7 H (11.5-14.5) % Eosinophils # 0.55 H (0.04-0.35) X 10*3/uL Basophils # 0.11 H (0.00-0.10) X 10*3/uL BUN/Creatinine Ratio 10.78 L (12.00-20.00) Ratio Microbiology - Last 24 Hours (Table) 01/02/23 20:17 Blood Culture - Preliminary Blood Assessment and Plan (1) UTI (urinary tract infection) Current Visit: Yes Status: Acute Code(s): N39.0 - URINARY TRACT INFECTION, SITE NOT SPECIFIED SNOMED Code(s): 60750717 (2) Sepsis Current Visit: Yes Status: Acute Code(s): A41.9 - SEPSIS, UNSPECIFIED ORGANISM SNOMED Code(s): 32427466 (3) Bacteremia due to Pseudomonas Current Visit: Yes Status: Acute Code(s): R78.81 - BACTEREMIA; B96.5 - PSEUDOMONAS (MALLEI) CAUSING DISEASES CLASSD ELSWHR SNOMED Code(s): 5365203147 Plan: 1patient was in the hospital with weakness dizziness and this patient to have a low-grade fever 100 F, the patient-also did have elevated white count however no clear focus of infection with initial work-up negative including a negative UA chest x-ray was negative no evidence of any joint swelling or cellulitis. 2blood cultures did grow pseudomonas aeruginosa, blood culture had been repeated so far negative 3- the CT abdominal pelvis did not show any acute abnormality 4patient urine is Growing ESBL e.coli Likely contaminant as repeat UA is negative 5- Pt to continue Zosyn for bacteremia and will finish therap with oral cipro x 8 days Dictation was produced using [employer] dictation software. please excuse any grammatical, word or spelling errors. Time with Patient: Less than 30
[2023-01-07] MEDS: PIPERACILLIN-TAZOBACTAM 3.375 GM in SODIUM CHLORIDE 0.9% 100 ML IVPB SCH ×2 (00:57→08:53)
[2023-01-07 07:56] VITALS: RESP 16; TEMP 97.4
[2023-01-07] MEDS: amLODIPine 5 MG TAB PO SCH (08:53)
[2023-01-07] MEDS: FAMOTIDINE 20 MG TAB PO SCH (08:53)
[2023-01-07] MEDS: HEPARIN SODIUM,PORCINE 5,000 UNIT/ML 1 ML VIAL SQ SCH (08:53)
[2023-01-07] MEDS: ASPIRIN 81 MG PO SCH (08:53)
[2023-01-07 08:57] LABS: Basophils # (A) 0.11 X 10*3/uL (0.00-0.10); Basophils % (A) 1.2 %; Eosinophils # (A) 0.67 X 10*3/uL (0.04-0.35); Eosinophils % (A) 7.4 %; Lymphocytes # (A) 3.25 X 10*3/uL (0.90-5.00); Lymphocytes % (A) 36.1 %; MCH 28.1 pg (27.0-32.0); MCHC 31.8 d/dL (32.0-37.0); MCV 88.4 FL (80.0-97.0); Monocytes # (A) 0.71 X 10*3/uL (0.20-1.00); Monocytes % (A) 7.9 %; NRBC Per 100 WBC 0 X 10*3/uL (0.00-0.01); Neutrophils # (A) 4.19 X 10*3/uL (1.80-7.70); Neutrophils % (A) 46.5 %; Platelet Count 473 X 10*3/uL (140-440); RBC 4.98 X 10*6/uL (4.10-5.20); RDW 15.8 % (11.5-14.5); WBC 9.01 X 10*3/uL (4.50-10.00)
[2023-01-07 10:20] LABS: BUN/Creat Ratio 11.44 Ratio (12.00-20.00); Blood Urea Nitrogen 10.3 mg/dL (9.0-27.0); Calcium 9.5 mg/dL (8.7-10.3); Carbon Dioxide 22.8 mmol/L (21.6-31.8); Chloride 107 mmol/L (96-109); Glucose 78 mg/dL (70-110); Sodium 142 mmol/L (135-145)
[2023-01-07 14:19] VITALS: BMI 28.3
[2023-01-07 14:53] VITALS: BP 101/63; PULSE 76
--- NOTE | 2023-01-08 21:56 | P.DS ---
Providers Date of admission: 12/31/22 12:51 Attending physician: Elisha Garcia Consults: 12/31/22 12:50 Consult Physician Urgent Consulting Provider: Pamela Davila Consult Reason/Comments: SEPSIS Do you want consulting provider notified?: Yes Primary care physician: Samy Brady Hospital Course: Final Diagnosis Acute urinary tract infection and sepsis with culture showing ESBL . Pseudomonas Bacteremia Sepsis with fever and mild leukocytosis Dizziness and PRE-Syncope secondary to orthostatic hypotension, improved poor Oral intake, improved Hypertension Hx of rheumatoid arthritis Former Smoker GI prophylaxis DVT prophylaxis Full Code Discharge Disposition Patient is stable for discharge home. Urine culture has finalized showing E.Coli and follow up blood culture is negative. Dr. Davila has recommended 7 day course of oral ciprofloxacin on discharge. Patient to repeat labs in 2 to 3 days. Recommending to see ID in 1 week and also to see PCP in 1 to 2 days. Cardiology follow up as well for the orthostatic postural changes. Amlodipine has been decreased to daily. Hospital Course This is an 87 years old female with past medical history of hypertension, rheumatoid arthritis. Patient lives by herself in her apartment, she walks short distances using a walker. Yesterday she had a dizzy spell that lasted for a few minutes without passing out so she decided to come to the hospital. She denies headache, weakness numbness, no chest pain shortness of breath or coughing. She did have fever. No diarrhea, no abdominal pain or vomiting. She has somewhat limited appetite today. She denies dysuria or urgency about she thinks her urine smells more than usual. Does have a history of ESBL uti. Urinalysis was abnormal, patient had leukocytosis on admission. She had mild KELSEY with BUN of 29 and creatinine 1.02 on admission. CRP elevated and procalcitonin was also quite elevated at 23. Patient was started on empiric antibiotics with IV Zosyn and admitted to the hospital with concern for UTI sepsis. Orthostatic vitals are positive also and cardiology was consulted. Infectious disease consulted. Patient had echocardiogram done showing EF 55-60% with mild pulmonary hypertension. Carotid doppler showing 50-69% stenosis of the left carotid bifurcation less than 50% stenosis of the right carotid bifurcation. With IV fluids orthostatic pressures improved. Recommending to drop the amlodipine to daily from BID as the diastolic pressures in the 50s. Urine culture was found to be positive for ESBL. Blood culture was positive for pseudomonas however repeat was negative. Patient was recommended to DC on 5 days of oral ciprofloxacin. White count has normalized to 9, electrolytes within normal limits. Hemodynamically patient is stable. Patient will be discharged home. Review of Systems Constitutional: Denied any fatigue denied any fever. Cardio vascular: denied any chest pain, palpitations Gastrointestinal: denied any nausea, vomiting, diarrhea Pulmonary: Denied any shortness of breath cough Neurologic denied any new focal deficits PHYSICAL EXAMINATION: GENERAL: The patient is alert and oriented x3, not in any acute distress. Well developed, well nourished. HEENT: Pupils are round and equally reacting to light. EOMI. No scleral icterus. No conjunctival pallor. Normocephalic, atraumatic. No pharyngeal erythema. No thyromegaly. CARDIOVASCULAR: S1 and S2 present. No murmurs, rubs, or gallops. PULMONARY: Chest is clear to auscultation, no wheezing or crackles. ABDOMEN: Soft, nontender, nondistended, normoactive bowel sounds. No palpable organomegaly. MUSCULOSKELETAL: No joint swelling or deformity. EXTREMITIES: No cyanosis, clubbing, or pedal edema. NEUROLOGICAL: Gross neurological examination did not reveal any focal deficits. SKIN: No rashes. Please see medication reconciliation for a list of current medication. Thank you for allowing us to participate in the care of this patient. The impression and plan of care has been dictated by Suzette Acuna, Nurse Practitioner as directed. Dr. Yousif MD I have performed a history and physical examination and medical decision making of this patient, discussed the same with the dictator, and agree with the dictators assessment and plan as written, documented as a scribe. Based on total visit time, I have performed more than 50% of this visit. Patient Condition at Discharge: Good Plan - Discharge Summary New Discharge Prescriptions: New Ciprofloxacin HCl [Cipro] 500 mg PO BID 7 Days #14 tab Famotidine [Pepcid] 20 mg PO DAILY #30 tab Continue Aspirin 81 mg PO DAILY #30 chewable Donepezil [Aricept] 5 mg PO DAILY Changed amLODIPine [Norvasc] 5 mg PO DAILY #0 Discontinued amLODIPine BESYLATE [Norvasc] 5 mg PO BID PRN PRN Reason: elevated bp Losartan Potassium 100 mg PO DAILY Discharge Medication List Aspirin 81 mg PO DAILY #30 chewable 03/06/15 [Rx] Donepezil [Aricept] 5 mg PO DAILY 12/31/22 [History] Ciprofloxacin HCl [Cipro] 500 mg PO BID 7 Days #14 tab 01/07/23 [Rx] Famotidine [Pepcid] 20 mg PO DAILY #30 tab 01/07/23 [Rx] amLODIPine [Norvasc] 5 mg PO DAILY #0 01/07/23 [Rx] Follow up Appointment(s)/Referral(s): Marilu Woods MD [STAFF PHYSICIAN] - 4 Weeks (office will call patient with appointment ) Jose Antonio Pablo MD [Primary Care Provider] - 1-2 days Pamela Davila MD [STAFF PHYSICIAN] - 1 Week Ambulatory/Diagnostic Orders: Basic Metabolic Panel [LAB.AMB] Time Frame: 3 Days, Location: None Selected Complete Blood Count w/diff [LAB.AMB] Location: None Selected Patient Instructions/Handouts: Urinary Tract Infection in Women (DC), Dizziness (ED) Activity/Diet/Wound Care/Special Instructions: Monitor blood pressure at home and keep log for follow up with PCP Diastolic blood pressure (lower number) should not be less than 50 this can increase risk for falls. If BP is consistently above 150/100s you may need to increase your blood pressure medication and recommend to discuss this with your PCP cosmetics supervisor if you are consistently having elevated blood pressures. Continue antibiotics for the next 7 days and follow up with Dr. Davila in the office. Follow up labs in 2 to 3 days make sure to have good hand hygiene due to esbl in urine Discharge Disposition: HOME WITH HOME HEALTH SERVICES
--- NOTE | 2023-01-09 08:56 | CDI ---
Documentation Clarification Form Date: 01/09/23 From: Becka Ferguson Admit Date: 12/31/2022 12:51:00 PM Patient Name: Susanne Lipscomb Visit Number: [id number] Discharge Date: 01/07/2023 03:17:00 PM ATTENTION: The Clinical Documentation Specialists (CDI) and [facility] Coding Staff appreciate your assistance in clarifying documentation. Please respond to the clarification below the line at the bottom and electronically sign. The CDI & [facility] Coding staff will review the response and follow-up if needed. Please note: Queries are made part of the Legal Health Record. If you have any questions, please contact the author of this message via ITS. Dr. Yvette Dodd, Acute kidney injury is documented in the discharge summary which may lack sufficient clinical evidence/support in the medical record. Additional clarification is requested. History/Risk Factors: Sepsis due to Pseudomonas, UTI, HTN, RA, OA Clinical Indicators: BUN of 29 and Creatinine 1.02 on admission Treatment: IV fluids, monitor labs Please clarify if acute kidney injury is a valid diagnosis? [ ] Yes, Acute kidney injury is present as evidence by (additional clinical support): [ x ] No, Acute kidney injury is ruled out [ ] Other (please specify diagnosis) [ ] Unable to determine MTDD
--- NOTE | 2023-01-11 11:42 | P.PN ---
Subjective Progress Note Date: 01/07/23 Principal diagnosis: Fever ?UTI Patient is a 87-year-old female with a past medical history significant for hypertension osteoarthritis former smoker presenting to the ospital after midnight complaining of dizziness, patient did have a low-grade fever and elevated white count with a chest x-ray negative urine negative. On today's evaluation that is 01/07/2023, the patient is afebrile, the patient is breathing comfortably on room air , the patient denies chest pain or cough, patient denies Abdominal pain , no nausea/vomiting /diarrhea Patient white count of 9.01, creatinine 0.9, blood cultures came positive with a Pseudomonas sensitive pathogen,However Urine with ESBL e.coli, CT abdominal pelvis did not show any acute abnormality , UA repeat is negative Objective - Vital Signs Vital signs: Vital Signs Temp 97.4 F L 01/07/23 07:46 Pulse 63 01/07/23 08:57 Resp 16 01/07/23 08:57 BP 142/75 01/07/23 08:57 Pulse Ox 97 01/07/23 08:57 FiO2 Intake & Output 01/06/23 01/07/23 01/07/23 18:59 06:59 18:59 Intake Total 177 Balance 177 Intake: Oral 177 Other: Voiding Method Toilet # Voids 3 2 - Exam GENERAL DESCRIPTION: Elderly female lying in bed in no distress RESPIRATORY SYSTEM: Unlabored breathing , decreased breath sounds at bases HEART: S1 S2 regular rate and rhythm ,no loud murmurs ABDOMEN: Soft , no tenderness EXTREMITIES: No edema feet - Labs CBC & Chem 7: 01/07/23 05:42 01/07/23 05:42 Labs: Abnormal Lab Results - Last 24 Hours (Table) 01/07/23 01/07/23 Range/Units 05:42 05:42 MCHC 31.8 L (32.0-37.0) d/dL RDW 15.8 H (11.5-14.5) % Plt Count 473 H (140-440) X 10*3/uL Eosinophils # 0.67 H (0.04-0.35) X 10*3/uL Basophils # 0.11 H (0.00-0.10) X 10*3/uL Anion Gap 12.20 H (4.00-12.00) mmol/L BUN/Creatinine Ratio 11.44 L (12.00-20.00) Ratio Assessment and Plan (1) UTI (urinary tract infection) Status: Acute Code(s): N39.0 - URINARY TRACT INFECTION, SITE NOT SPECIFIED SNOMED Code(s): 08524414 (2) Sepsis Status: Acute Code(s): A41.9 - SEPSIS, UNSPECIFIED ORGANISM SNOMED Code(s): 54093521 (3) Bacteremia due to Pseudomonas Status: Acute Code(s): R78.81 - BACTEREMIA; B96.5 - PSEUDOMONAS (MALLEI) CAUSING DISEASES CLASSD ELSWHR SNOMED Code(s): 8895894373 Plan: 1patient presented to the hospital with weakness dizziness and this patient to have a low-grade fever 100 F, the patient-also did have elevated white count however no clear focus of infection with initial work-up negative including a negative UA chest x-ray was negative no evidence of any joint swelling or cellulitis. 2blood cultures did grow pseudomonas aeruginosa, blood culture had been repeated so far negative 3- the CT abdominal pelvis did not show any acute abnormality 4patient urine is Growing ESBL e.coli Likely contaminant as repeat UA is negative 5- patient to finish therap with oral cipro x 8 days on discharge with close outpatient follow-up discussed with the POUL[employer] HATCHERY MANAGER for admitting team Dictation was produced using [employer] dictation software. please excuse any grammatical, word or spelling errors. Time with Patient: Less than 30
== END 2023-01-07 15:17 | disposition home or self-care (01) | DRG 872 ==
LOC: EC 00:38 → 6NMEDSUR 03:24 → OBSVTOIN 12:51 → 6NMEDSUR 21:00
PROVIDERS: ADMIT Hospitalist; ATTEND Hospitalist
DX: A41.52 Sepsis due to Pseudomonas (principal); N39.0 Urinary tract infection, site not specified; I27.20 Pulmonary hypertension, unspecified; I10 Essential (primary) hypertension; M06.9 Rheumatoid arthritis, unspecified; Z20.822 Contact with and (suspected) exposure to COVID-19; E86.0 Dehydration; I95.1 Orthostatic hypotension; I65.23 Occlusion and stenosis of bilateral carotid arteries; M19.90 Unspecified osteoarthritis, unspecified site; Z79.82 Long term (current) use of aspirin; Z79.899 Other long term (current) drug therapy; Z87.891 Personal history of nicotine dependence; Z87.440 Personal history of urinary (tract) infections; Z96.653 Presence of artificial knee joint, bilateral
CPT/HCPCS: 36415; 71045; 74177; 78306; 80048; 80053; 81001; 81003; 84145; 84484; 85025; 85027; 85610; 85730; 86140; 87040; 87077; 87086; 87186; 87636; 93005; 93306; 93880; 96360; 96361; 99291

== ENCOUNTER → 2023-01-10 | Outpatient (CLI) | payer MEDICARE, OTHER ==
[2023-01-10 17:10] LABS: Basophils # (A) 0.09 X 10*3/uL (0.00-0.10); Basophils % (A) 0.8 %; Eosinophils # (A) 0.71 X 10*3/uL (0.04-0.35); Eosinophils % (A) 6.4 %; HCT 45.9 % (37.2-46.3); HGB 14.3 d/dL (12.0-15.0); Lymphocytes # (A) 2.73 X 10*3/uL (0.90-5.00); Lymphocytes % (A) 24.8 %; MCH 28.2 pg (27.0-32.0); MCHC 31.2 d/dL (32.0-37.0); MCV 90.5 FL (80.0-97.0); Mean Platelet Volume 10.9 FL (9.5-12.2); NRBC Per 100 WBC 0 X 10*3/uL (0.00-0.01); Neutrophils # (A) 6.29 X 10*3/uL (1.80-7.70); Platelet Count 638 X 10*3/uL (140-440); RBC 5.07 X 10*6/uL (4.10-5.20); RDW 16.3 % (11.5-14.5); WBC 11.03 X 10*3/uL (4.50-10.00)
[2023-01-10 22:45] LABS: Blood Urea Nitrogen 11.6 mg/dL (9.0-27.0); Calcium 10.4 mg/dL (8.7-10.3); Carbon Dioxide 25.3 mmol/L (21.6-31.8); Chloride 106 mmol/L (96-109); Glucose 88 mg/dL (70-110); Potassium 5.4 mmol/L (3.5-5.5); Sodium 142 mmol/L (135-145)
== END | disposition home or self-care (01) ==
LOC: LABWHC1 12:09
PROVIDERS: ATTEND Nurse Practitioner Family
DX: Z00.00 Encounter for general adult medical examination without abnormal findings (principal)
CPT/HCPCS: 36415; 80048; 85025